=== PATIENT | female | born 1950 | race Caucasian/White ===

== ENCOUNTER → 2017-12-17 13:26 | Outpatient (CLI) | payer BC, SELFPAY ==
--- NOTE | 2017-12-17 13:45 | MRI_ITS ---
STUDY: MRI CERVICAL SPINE WITHOUT CONTRAST REASON FOR EXAM: Female, 67 years old. Neck pain and torticollis. TECHNIQUE: Standardized fat and water weighted pulse sequences were obtained in the sagittal and axial planes. COMPARISON: MRI of the cervical spine dated October 27, 2007. FINDINGS: Normal foramen magnum and brainstem-cervical cord junction. Normal craniovertebral junction. There are degenerative changes of the anterior atlantoaxial articulation. Normal odontoid process. There is straightening of the normal cervical lordosis. Normal vertebral bodies and posterior osseous elements. C2-3: Normal endplates. Normal disc height, signal and morphology. Normal central canal and intervertebral neural foramina. C3-4: There may be a small focal central disc protrusion. There is severe left-sided neural foraminal narrowing with potential nerve impingement. There is uncovertebral facet joint arthropathy, more severe on the left than the right. The right neural foramen is patent. There is no sniffing and central acquired canal stenosis. C4-5: There is mild anterolisthesis at this level with mild uncovering of the disc. There is a disc bulge and osteophyte complex. No foramina are patent. There is mild uncovertebral and facet joint arthropathy and left. C5-6: There is narrowing of the disc. The neural foramina are patent. There is no significant central acquired canal stenosis. C6-7: There is a mild disc bulge and osteophyte complex. There is moderate right-sided neural foraminal narrowing. Left neural foramen is patent. There is no significant central acquired canal stenosis. C7-T1: Normal endplates. Normal disc height, signal and morphology. Normal central canal and intervertebral neural foramina. Normal cervical cord. There is no demonstrated cervical cord syrinx cavity. Normal visualized soft tissue structures. MRI/Spine Cervical (Routine) IMPRESSION: Multilevel degenerative disc disease and degenerative arthropathy of the cervical spine with neural foraminal narrowing, acquired canal stenosis and potential nerve impingement as described. Electronically Signed: Sasha Dozier MD at 16:26 EST , Service support ,
== END ==
PROVIDERS: Family Provider Family Medicine; PCP Family Medicine; Visit Provider Anesthesiology Pain Medicine
DX: M43.6 Torticollis (principal); M50.30 Other cervical disc degeneration, unspecified cervical region; M50.20 Other cervical disc displacement, unspecified cervical region; M54.2 Cervicalgia
CPT/HCPCS: 72141

== ENCOUNTER → 2019-12-21 07:54 | Outpatient (CLI) | payer MEDICARE, SELFPAY ==
--- NOTE | 2019-12-21 08:30 | PET_ITS ---
EXAMINATION: FDG PET-CT INDICATIONS: A 69-year-old female with reported history of pulmonary nodularity. COMPARISON EXAMINATION: CT of the chest report dated 12/09/2019 INDEX LESION SIZE SUV INTERPRETATION Right upper posterior lung-right upper lobe 23.6-mm (frame 237) 1.9 Quantitative criteria for viable neoplasm are not fulfilled, sequential radiologic investigation recommended TECHNIQUE: Following the intravenous administration of 16.86 mCi of F-18 deoxyglucose via the left antecubital fossa, multiplanar image acquisitions of the neck, chest, abdomen and pelvis to level of mid thigh, obtained at one hour post radiopharmaceutical administration contemporaneously interpreted with the current CT of the neck, chest, abdomen and pelvis, to level of mid thigh, dated 12/21/[address] of the chest report dated 12/09/2019 reveals: BLOOD GLUCOSE LEVEL:?? 92 mg/dl?HEIGHT:?67 inches?WEIGHT: 162 lbs. FINDINGS: 1. There is mild increased FDG concentration observed in the right upper posterior lung, right upper lobe adjacent to the major fissure generating a calculated maximal standard uptake value of 1.9. The maximal axial diameter of the corresponding parenchymal density on review of CT of the chest dated 12/21/2019 is 23.6-mm (transverse). 2. Normal physiologic distribution of the radiopharmaceutical is apparent in the hepatic (2.4) and splenic parenchyma, both renal units, bladder and visualized intestinal tract. The visualized portion of the cerebral cortex demonstrate symmetric and preserved glucose metabolism. Diffuse radiopharmaceutical concentration is noted in all four quadrants of the abdomen and pelvis. There is prominent radiopharmaceutical concentration uniformly defined in the left ventricular myocardium commensurate with conversion from fatty acid to glucose metabolism in the fed state. Facilitated tracer concentration is noted in the oral cavity in proximity to dental hardware placement, diffuse, non-nodular in presentation most consistent with a component of physiologic tracer distribution and uptake associated with metallic reconstruction artifact. (Junie et al, AJR 179:1337, 2002). Pertinent CT findings are as follows: CHEST: Bilateral axillary soft tissue densities, subcentimeter in presentation are non-glucose avid. There are no additional parenchymal densities-nodules noted in the right and left hemithorax demonstrating discernible increased FDG concentration. Emphysematous change is noted in the bilateral upper lung zones. ABDOMEN AND PELVIS: There is atherosclerotic calcification defined in the abdominal aorta without evidence of dilatation-aneurysm formation. Bilateral inguinal soft tissue is ametabolic. Calcification is noted in the left lower hemipelvis. SKELETAL: Degenerative changes are noted in the cervical, thoracic and lumbar spine. There is diffuse demineralization identified throughout the axial skeletal structures. PET/PET/CT Tumor Base -Thigh Init IMPRESSION: 1. NEGATIVE EXAMINATION. There is no definitive quantitative scintigraphic evidence of viable neoplasm. 2. Enhanced FDG distribution noted in the right upper posterior lung-right upper lobe does not fulfill quantitative criteria for viable neoplasm. (Jalloh et al, Annals of Internal Medicine, 138:724, 2003). 3. Metabolic and/or anatomic stability may be ensured in the right hemithorax pulmonary parenchymal abnormality with repeat FDG PET study and/or CT of the thorax in three months. (Xiu, Journal of Nuclear Medicine 45:88, P2004 Fer, Seminars in Thoracic and Cardiovascular Surgery 14:292, 2002). 4. Non-glucose avid additional parenchymal densities may be further investigated with repeat CT of the chest in 3-6 months to ensure stability, involution. (Fer, Seminars in Thoracic and Cardiovascular Surgery 14:292, 2002). Electronic Signature Dillan Nair D.O. Electronically Signed: Dlilan Nair DO at 15:49 EST Tel , Service support ,
== END ==
PROVIDERS: PCP Family Medicine
DX: R91.1 Solitary pulmonary nodule (principal)
CPT/HCPCS: 78815; A9552

== ENCOUNTER 2021-05-29 10:59 | Day surgery (SDC) | payer MEDICARE, SELFPAY ==
[2021-05-29] VITALS (7 sets, daily range): BP systolic 91–110; BP diastolic 67–78; PULSE 65–92; RESP 16; TEMP 36.1–36.8; O2SAT 97–100; BMI 25.4
[2021-05-29] MEDS: Lactated Ringers 1,000 ML 100 ML IV (11:39)
--- NOTE | 2021-05-29 12:00 | EGD_PTH ---
PATIENT: ELMER TSE LOC: EN U#:[id number] AGE/SX: 70/F ROOM: RE05/29/[address]: Dr. Eligio Faustin MD : 1950 BED: DIS: 05/29/2021 SPEC #: [id number] RECD: 05/29/21 13:46 STATUS: [facility] HGADA #: [id number] CARMELO: 05/29/21 12:[address]: Eligio Faustin DEPT: SURGICAL PATHOLOGY RECD BY: Shannan Jama ENTERED: 05/30/21 13:03 SP TYPE: EGD BIOPSY ALTAGRACIA DR: Dr. Joel Puente MD Tissues: A - Gastric mucous membrane B - COLON BIOPSY Procedures: Surgery Specimen Level IV HEADER OPERATION: Colonoscopy, EGD ([facility]) PRE-OP DIAGNOSIS: Change in bowel habits, abdomen pain, GERD TISSUE SUBMITTED: A ? Antrum biopsy for histo and H. pylori, B ? Random colonic biopsy MICROSCOPIC DIAGNOSIS A. Gastric antrum, biopsy: Mild chronic gastritis. B. Colon, random biopsy: No pathologic change. AM:zander 05/31/2021 COMMENT A. The results of immunohistochemistry for Helicobacter pylori will be reported separately ([id number]). MICROSCOPIC DESCRIPTION Slides are reviewed. GROSS DESCRIPTION A - Received in fixative is one container labeled with the patient's name and designated antrum biopsy. The specimen consists of one irregular fragment of light joshi soft tissue that measures 0.3 x 0.3 x 0.1 cm. The specimen is totally submitted in one cassette. B - Received in fixative is one container labeled with the patient's name and designated random colonic biopsy. The specimen consists of multiple irregular fragments of light joshi soft tissue that in aggregate measure 2 x 0.5 x 0.1 cm. The specimen is totally submitted in one cassette. / SJ:zander 05/30/21 TC:3 CPT: 42282 x2
--- NOTE | 2021-05-29 12:00 | IMM_PTH ---
PATIENT: ELMER TSE LOC: EN U#:[id number] AGE/SX: 70/F ROOM: RE05/29/[address]: Dr. Eligio Faustin MD : 1950 BED: DIS: 05/29/2021 SPEC #: [id number] RECD: 05/30/21 09:50 STATUS: [facility] REHasmukh #: [id number] CARMELO: 05/29/21 12:[address]: Eligio Faustin DEPT: IMMUNOHISTOCHEMISTRY RECD BY: Stephany Doshi ENTERED: 05/30/21 09:51 SP TYPE: IMMUNO OTHR DR: Dr. Joel Puente MD Tissues: A - Stomach, NOS Procedures: H Pylori (initial) PHYSICIAN & INSTITUTION [place] [address] SPECIMEN INFORMATION: Tissue Source: A ? Antrum biopsy Clinical Info: Change in bowel habits, abdominal pain, GERD Specimen Number: [id number] CPT code: 80063 METHODOLOGY: Deparaffinized sections of prefer/formalin-fixed tissue or PAP/DQ stained slides are incubated with monoclonal/polyclonal antibodies/oligonucleotide probes. Localization is made via biotin free immunoperoxidase method. Appropriate controls are performed and reacted as expected. Results on target cell population are indicated in the following table: RESULTS: ANTIBODY / CLONE RESULT Block A H Pylori (polyclonal) negative These tests were developed and their performance characteristics determined by [facility]. They may not have been cleared or approved by the U.S. Food and Drug Administration. The FDA has determined that such clearance or approval is not necessary. INTERPRETATION: A. Antrum biopsy: Negative for Helicobacter pylori organisms. AM:zander 05/31/2021
--- NOTE | 2021-05-29 12:00 | PCM.HP.BLA ---
History and Physical Date of Admission: 05/29/21 HISTORY AND PHYSICAL ? Hedy Mitchell 1950 ? REFERRING PHYSICIAN: Alice Enrique PA-C ? CHIEF COMPLAINT: New Patient and Change In Bowel Habits ? HPI: The patient is a 70 year old female referred for endoscopy. Hedy notes a recent change in bowel habits. States she used to be more constipated, now stools have a looser consistency and have changed in color. Has noted some associated lower abdominal pressure, is also being evaluated by [facility] for this. She has noted upper abdominal discomfort with acid reflux as well. Denies any particular aggravating or alleviating factors. Notes family history of colon issues-states mother had colitis, daughter and grandfather with Crohn's disease. She notes past history of tobacco use. ? Patient denies any weight changes, blood in stools or black tarry stools. ? Hedy has undergone prior endoscopy. Last EGD [address] Rossi under [facility]. States last colonoscopy 4 years ago at outside facility, records not currently available for review. Patient notes prior history of colon polyps. ? Past medical history significant for COPD, CLL, adenocarcinoma of lung. Her past medical history lists diagnosis of both inflammatory bowel disease and IBS with constipation. Patient denies any personal history of Crohn's or UC to me today. ? PAST MEDICAL HISTORY PAST MEDICAL HISTORY Diagnosis Date ? 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 Adenocarcinoma (HCC) 08/25/2020 ? right upper lobe ? Adenocarcinoma, lung (HCC) 2019 ? CLL (chronic lymphocytic leukemia) (HCC) ? ? CLL (chronic lymphocytic leukemia) (HCC) 2020 ? Colon polyps ? ? COPD (chronic obstructive pulmonary disease) (HCC) ? ? 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 ? Sibilia PFT normal. ? Degenerative disc disease, cervical 03/01/2015 ? Fibromyalgia 07/21/2012 ? Hyperlipidemia ? ? Inflammatory bowel disease ? ? Irritable bowel syndrome with constipation 01/05/2013 ? Lung cancer (HCC) ? ? Osteoporosis 06/07/2014 ? Pain in limb 06/09/2018 ? Palpitations ? ? Tubular adenoma of colon 01/05/2011 ? cecum. 5 yr follow up ? Unspecified hypothyroidism ? ? Viral hepatitis A without mention of hepatic coma ? ? ? PAST SURGICAL HISTORY PAST SURGICAL HISTORY Procedure Laterality Date ? COLONOSCOP W/ OR W/O BRSH SPEC ? 01/27/2014 ? Colonoscopy ? COLONOSCOPY ? 2017 ? pt states had this done by Dr. Garnett and he placed her on 5 year recall ? COLONOSCOPY ? ? ? COLONOSCOPY W/BX ? 01/05/11 ? D&C, DIAG AND/OR THERAPEUTIC ? ? ? Dilation & curettage ? EGD W/O OR W/BRUSH/WASH ? 06/07/2016 ? EGD ? LOBECTOMY, SEGMENT Right 08/25/2020 ? VATS ? [facility] ? 1999 ? myomectomy around the eyelids ? ? ? CURRENT MEDICATIONS Current Outpatient Medications Medication Sig ? estradiol (ESTRACE) 0.01 % (0.1 mg/gram) vaginal cream Use 1 Applicator vaginally two times a week. ? ferrous sulfate (IRON ORAL) Take 28 mg by mouth. Taking one half tablet daily ? atorvastatin (LIPITOR) 20 mg tablet Take 1 tablet by mouth once daily. ? SYNTHROID 112 mcg tablet Take 1 tablet by mouth once daily. Take on empty stomach. For thyroid ? lidocaine (SALONPAS) 4 % patch Apply 1 Patch as directed once daily. ? magnesium hydroxide (MOM) 400 mg/5 mL suspension Take 30 mL by mouth twice daily. ? Calcium-Cholecalciferol, D3, (CALCIUM 600 WITH VITAMIN D3) 600 mg(1,500mg) -400 unit cap Take 1 capsule by mouth twice daily. ? Cholecalciferol, Vitamin D3, 2,000 unit cap Take 1 tablet by mouth once daily. ? clonazePAM (KLONOPIN) 0.5 mg tablet Take 1 tablet by mouth twice daily. ? Biotin 800 mcg ORAL Tab Take by mouth once daily. ? ascorbic acid (VITAMIN C) 500 mg ORAL tablet Take 1 tablet by mouth once daily. ? TRAZODONE 150MG TABLET Take one(1) tablet daily at bedtime. ? peg 3350-Electrolytes (GOLYTELY) 236-22.74-6.74 -5.86 gram suspension Take 4,000 mL by mouth one time only for 1 dose. ? Current Facility-Administered Medications Medication Dose Route Frequency ? perflutren lipid microspheres 1.3 mL in NaCl (PF) 0.9% 10 mL injection (DEFINITY) INTRAVENOUS DIRECTED PRN ? sodium chloride 0.9 % (flush) 10 mL (BD POSIFLUSH) 10 mL INTRAVENOUS DIRECTED PRN ? ? ALLERGIES: Cephalexin, Ciprofloxacin, Reglan [Metoclopramide Hcl], and Sulfa (Sulfonamide Antibiotics) ? PERSONAL HISTORY: SOCIAL HISTORY Social History ? Tobacco Use ? Smoking status: Former Smoker ? ? Packs/day: 0.40 ? ? Years: 45.00 ? ? Pack years: 18.00 ? ? Types: Cigarettes ? ? Quit date: 06/30/2006 ? ? Years since quittin.8 ? Smokeless tobacco: Never Used Vaping Use ? Vaping Use: Never used Substance Use Topics ? Alcohol use: Yes ? ? Alcohol/week: 17.5 standard drinks ? ? Types: 7 Glasses of Wine (5oz) per week ? ? Comment: daily red wine, one glass ? Drug use: No ? FAMILY HISTORY: FAMILY HISTORY FAMILY HISTORY Problem Relation Age of Onset ? Cancer Mother ? ? Lung ? Cataract Mother ? ? Coronary Artery Disease Maternal Grandmother ? ? angina ? Cataract Father ? ? other (Crohn's disease) Father ? ? Lung Cancer Brother ? ? Heart Son ? ? bradycardia,arrhythmia ? other (Crohn's disease) Daughter ? ? ? REVIEW OF SYMPTOMS: The review of systems data was entered by the nurse and reviewed by me ? Nursing Notes: Karen Marin RN 05/02/2021 1:36 PM Signed REVIEW OF SYSTEMS: General: The patient denies fatigue, denies weight loss, denies weight gain, denies feeling hot, and denies feelings of cold. Eyes: The patient denies glaucoma, denies eye injury/surgery, wears glasses or contacts. Ear/Nose/Throat: The patient denies allergies, denies hayfever, denies ear infections, and denies bloody noses. Cardiovascular: The patient denies chest pain, denies heart disease, denies high blood pressure,denies cardiac stent, denies prior heart attack, NOTES PALPITATIONS/irregular heart beat, NOTES high cholesterol, denies poor circulation, denies heart failure, other cardiac issues, denies claudication, denies cold feet, denies peripheral arterial stent. Respiratory: The patient denies tuberculosis, denies pneumonia, denies frequent cough, denies pulmonary embolism, denies shortness of breath, and denies coughing up blood. Gastrointestinal: The patient denies difficulty swallowing, denies acid reflux, denies ulcers, denies vomiting, denies jaundice/hepatitis, denies gallbladder problems, denies black or tarry stools, denies hemorrhoids, denies bleeding from rectum, denies diverticulitis, NOTED constipation, NOTES diarrhea, denies loss of stool control, and denies hernias. Kidney/Bladder: The patient denies kidney stones, NOTES urine infections, and denies bloody urine. Skin: The patient denies a history of skin cancer, denies bleeding/changing moles, and denies a history of skin rash. Neurologic: The patient denies a history of epilepsy/convulsions, denies headaches, denies head/spinal injuries, and denies stroke/TIA. Psychiatric: The patient denies psychiatric medications, denies depression, and denies voices, denies substance abuse. Endocrine: The patient denies thyroid disorders, denies diabetes, and denies hormonal problems. Hematologic: The patient denies a history of bruising, denies bleeding, and denies anemia, denies blood clots. Infections: The patient denies a history of measles and mumps, denies rheumatic fever, and denies sexually transmitted diseases. Musculoskeletal: The patient denies back pain/injury, denies back problems, denies sciatica, denies knee/foot trouble, denies arthritis, or denies gout. ? Last Colonoscopy: 2017 ? Karen Marin RN I have confirmed and edited as necessary, the PFSH and ROS obtained by others. Shelia Esteban PA-C ? PHYSICAL EXAMINATION: ? General: The patient is 70 year old female, well nourished, well hydrated in no acute distress. The patient is oriented to time, place, and person. ? VITALS: Pulse 101, temperature 36.1 ?C (96.9 ?F), temperature source Tympanic, resp. rate 17, height 172.7 cm (5' 8), weight 76.3 kg (168 lb 3.2 oz), SpO2 99 %. Body mass index is 25.57 kg/m?. ? HEENT: Normal cephalic, ataumatic, pupils are equally round, sclera are anicteric, mucous membranes are moist, oropharynx is clear. Neck has no masses, asymmetry or lymphadenopathy. ? Respiratory: Clear to auscultation and percussion. Normal respiratory excursion and pattern. ? Cardiac: Examination is regular rate and rhythm. Normal S1/S2 ? Abdominal exam: Soft, nontender, with no palpable masses. No hepatosplenomegaly. No palpable hernias. ? Extremities: no clubbing, cyanosis or edema. No adenopathy. ? LABORATORY VALUES: As Noted ? RADIOLOGIC STUDIES: As Noted ? ? Assessment IMPRESSION: change in bowel habits, upper abdominal discomfort, lower abdominal pressure and pain, bloating, GERD ? PLAN: I have reviewed my findings with the surgeon. Will plan for upper and lower endoscopy. We discussed the risks and benefits of the planned endoscopy. I have informed the patient that complications can occur including failure to complete the endoscopy and perforation. The patient had the opportunity to ask questions concerning the planned endoscopy. My staff has also explained the procedure to the patient in understandable terms and has given the patient printed material concerning the procedure. The patient freely consents to surgery. ? The patient was offered a surgery/procedure at a [facility]. I have counseled the patient regarding the risk of exposure to and/or potential harm posed by the COVID-19 virus with having a surgery/procedure at this time versus the risk of? delaying the surgery/procedure. It is not possible to know either the risk of delaying the surgery or procedure or chance of getting an infection with perfect accuracy, but a joint decision was made between the patient and myself?to proceed at this time with endoscopy. ? ? I plan to use Golytely bowel preparation ? The patient takes prescription medications which I feel decrease the chance of successful sedation, therefore we will plan for procedure to be done under [facility]. ? ? ? Diagnoses: (R19.4) Change in bowel habits (primary encounter diagnosis) (R10.11, R10.12) Bilateral upper abdominal discomfort (R14.0) Abdominal bloating (K21.9) Gastroesophageal reflux disease, unspecified whether esophagitis present (R10.30) Lower abdominal pain ? I spent a total of 35 minutes on the date of the service which included preparing to see the patient, [id number] patient care, completing clinical documentation, obtaining and/or reviewing separately obtained history, performing a medically appropriate examination, counseling and educating the patient/family/caregiver, ordering medications, tests, or procedures and care coordination (not separately reported). ? Shelia Esteban PA-C I have re-examined the patient. There are no clinical changes since date of exam.
--- NOTE | 2021-05-29 12:26 | OP.CCLET_ITS ---
05/29/2021 Joel Puente MD Re : Upper GI endoscopy procedure for Hedy Mitchell Dear Dr. Puente This procedure was performed on Saturday, May 29, 2021. My impressions and recommendations are as follows: Impressions : - Z-line regular, 41 cm from the incisors. - Gastritis. Biopsied. - Normal examined duodenum. Recommendations : - Await pathology results. - Repeat upper endoscopy PRN for surveillance. - Return to physician front end assistant in 1 week. - Continue present medications. My findings are described in the full procedure note, which is enclosed. If I can be of further assistance, please feel free to contact me at Doctor phone number(s): , Fax: [phone], Work: . Sincerely, MD Eligio Ventura MD 05/29/2021 12:25:34 PM This report has been signed electronically.
--- NOTE | 2021-05-29 12:26 | OP.EGD_ITS ---
Patient Name: Hedy Mitchell Procedure Date: 05/29/2021 11:49 AM Date of : 1950 Age: 70 Procedure: Upper GI endoscopy Indications: Gastro-esophageal reflux disease Providers: Eligio Faustin MD Referring MD: Joel Puente MD Medicines: See the Anesthesia note for documentation of the administered medications Patient Profile: This is a 70 year old female. Refer to note in patient chart for documentation of history and physical. Complications: No immediate complications. Procedure: Pre-Anesthesia Assessment: - Prior to the procedure, a History and Physical was performed, and patient medications and allergies were reviewed. The patient's tolerance of previous anesthesia was also reviewed. The risks and benefits of the procedure and the sedation options and risks were discussed with the patient. All questions were answered, and informed consent was obtained. Prior Anticoagulants: The patient has taken no previous anticoagulant or antiplatelet agents. ASA Grade Assessment: II - A patient with mild systemic disease. After reviewing the risks and benefits, the patient was deemed in satisfactory condition to undergo the procedure. After obtaining informed consent, the endoscope was passed under direct vision. Throughout the procedure, the patient's blood pressure, pulse, and oxygen saturations were monitored continuously. The gastroscope was introduced through the mouth, and advanced to the second part of duodenum. The upper GI endoscopy was accomplished without difficulty. The patient tolerated the procedure well. Scope In: 12:06:11 PM Scope Out: 12:08:35 PM Total Procedure Duration Time 0 hours 2 minutes 24 seconds Findings: The Z-line was regular and was found 41 cm from the incisors. Localized minimal inflammation characterized by erythema was found in the prepyloric region of the stomach. Biopsies were taken with a cold forceps for Helicobacter pylori testing. The examined duodenum was normal. Impression: - Z-line regular, 41 cm from the incisors. - Gastritis. Biopsied. - Normal examined duodenum. Recommendation: - Await pathology results. - Repeat upper endoscopy PRN for surveillance. - Return to physician public services assistant in 1 week. - Continue present medications. Procedure Code(s): --- Professional --- 75389, Esophagogastroduodenoscopy, flexible, transoral; with biopsy, single or multiple Diagnosis Code(s): --- Professional --- K29.70, Gastritis, unspecified, without bleeding K21.9, Gastro-esophageal reflux disease without esophagitis CPT copyright 2017 [employer]. All rights reserved. The codes documented in this report are preliminary and upon hedge trimmer review may be revised to meet current compliance requirements. MD Eligio Ventura MD 05/29/2021 12:25:34 PM This report has been signed electronically. Number of Addenda: 0 Note Initiated On: 05/29/2021 11:49 AM
--- NOTE | 2021-05-29 12:29 | OP.COLON_ITS ---
Patient Name: Hedy Mitchell Procedure Date: 05/29/2021 12:09 PM Date of : 1950 Age: 70 Procedure: Colonoscopy Indications: Lower abdominal pain, Change in bowel habits Providers: Eligio Faustin MD Referring MD: Joel Puente MD Medicines: See the Anesthesia note for documentation of the administered medications Patient Profile: This is a 70 year old female. Refer to note in patient chart for documentation of history and physical. Last Colonoscopy: 2016. Complications: No immediate complications. Procedure: Pre-Anesthesia Assessment: - Prior to the procedure, a History and Physical was performed, and patient medications and allergies were reviewed. The patient's tolerance of previous anesthesia was also reviewed. The risks and benefits of the procedure and the sedation options and risks were discussed with the patient. All questions were answered, and informed consent was obtained. Prior Anticoagulants: The patient has taken no previous anticoagulant or antiplatelet agents. ASA Grade Assessment: II - A patient with mild systemic disease. After reviewing the risks and benefits, the patient was deemed in satisfactory condition to undergo the procedure. After I obtained informed consent, the scope was passed under direct vision. Throughout the procedure, the patient's blood pressure, pulse, and oxygen saturations were monitored continuously. The adult colonoscope was introduced through the anus and advanced to the cecum, identified by appendiceal orifice and ileocecal valve. The colonoscopy was performed without difficulty. The patient tolerated the procedure well. The quality of the bowel preparation was good. Scope In: 12:11:18 PM Scope Withdrawal Time 0 hours 7 minutes 26 seconds Scope Out: 12:22:47 PM Total Procedure Duration Time 0 hours 11 minutes 29 seconds Findings: The colon (entire examined portion) appeared normal. Biopsies for histology were taken with a cold forceps from the entire colon for evaluation of microscopic colitis. The exam was otherwise without abnormality on direct and retroflexion views. Impression: - The entire examined colon is normal. Biopsied. - The examination was otherwise normal on direct and retroflexion views. Recommendation: - Discharge patient to home. - Resume previous diet. - Continue present medications. - Await pathology results. - Repeat colonoscopy in 10 years for screening purposes. - Return to physician assistant professor of drama in 1 week. Procedure Code(s): --- Professional --- 01066, Colonoscopy, flexible; with biopsy, single or multiple Diagnosis Code(s): --- Professional --- R10.30, Lower abdominal pain, unspecified R19.4, Change in bowel habit CPT copyright 2017 [employer]. All rights reserved. The codes documented in this report are preliminary and upon independent living advisor review may be revised to meet current compliance requirements. MD Eligio Ventura MD 05/29/2021 12:28:51 PM This report has been signed electronically. Number of Addenda: 0 Note Initiated On: 05/29/2021 12:09 PM
--- NOTE | 2021-05-29 12:30 | OP.CCLET_ITS ---
05/29/2021 Joel Puente MD Re : Colonoscopy procedure for Hedy Mitchell Dear Dr. Puente This procedure was performed on Saturday, May 29, 2021. My impressions and recommendations are as follows: Impressions : - The entire examined colon is normal. Biopsied. - The examination was otherwise normal on direct and retroflexion views. Recommendations : - Discharge patient to home. - Resume previous diet. - Continue present medications. - Await pathology results. - Repeat colonoscopy in 10 years for screening purposes. - Return to physician under water assistant in 1 week. My findings are described in the full procedure note, which is enclosed. If I can be of further assistance, please feel free to contact me at Doctor phone number(s): , Fax: [phone], Work: . Sincerely, MD Eligio Ventura MD 05/29/2021 12:28:51 PM This report has been signed electronically.
--- NOTE | 2021-05-29 12:31 | EX.PCM.DISCH ---
Discharge Instructions Procedure General Surgery Diet Discharge Diet: Light diet - advance as tolerated (If you have questions about your diet instructions, please talk to your doctor.) Activity Discharge Activity: May Not Drive (for 1 week or while taking narcotic pain medicine.) May shower in (days): 1 Lifting Restrictions: 10 pounds Dressing / Incision Call your doctor if your incision/area has: Continuous Slow Oozing, Sudden Increased Bleeding, Increased Pain/ Swelling, Increased Redness and Foul Smelling Discharge Call your doctor if you observe: Fever of 101 or Higher Suture Line Care: Avoid Pulling/Pushing and Avoid Pinching/Bending Additional Dressing/Incision Instructions:: Change or remove dressing in 4 days. Leave steri-strips in place for 1 week. Follow Up Care Please Follow Up With: Shelia Esteban PA-C When: Call office to schedule an appointment to be seen in about 10 days. Test Results: Test results from this visit will be discussed in further detail at your follow-up appointment, if applicable. Discharge Plan Admission Attending Provider: Eligio Faustin Primary Care Provider: Joel Puente Discharge Orders/Prescriptions Prescriptions: No Action atorvastatin [Lipitor] 20 mg Tablet 20 mg PO DAILY RF: 0 oxybutynin chloride 10 mg Tablet Extended Release 24hr 10 mg PO QODAY RF: 0 clonazepam 0.5 mg tablet 0.5 mg PO BID RF: 0 Vitamin C 1,000 mg Tablet Extended Release 1,000 mg PO DAILY RF: 0 trazodone 150 mg Tablet 150 mg PO QHS PRN (Reason: Sleep) RF: 0 calcium citrate 500 mg Tablet, Effervescent 500 mg PO BID RF: 0 vitamin B complex [Vitamin B Complex-100] Tablet 1 tab PO QODAY RF: 0 magnesium 250 mg Tablet 250 mg PO BID RF: 0 coenzyme Q10 [CoQ-10] 30 mg Capsule 30 mg PO DAILY RF: 0 levothyroxine [Synthroid] 112 mcg Tablet 112 mcg PO QHS RF: 0 cholecalciferol (vitamin D3) [Vitamin D3] 25 mcg (1,000 unit) Tablet 25 mcg PO DAILY RF: 0 alpha lipoic acid 600 mg Capsule 600 mg PO DAILY RF: 0 biotin 5,000 mcg Tablet,Disintegrating 5,000 mcg PO DAILY RF: 0
== END 2021-05-29 13:29 ==
LOC: EN 11:02 → AC 11:03
PROVIDERS: PCP Family Medicine; Referring Provider Family Medicine; Visit Provider Surgery
PROC: 0DJD8ZZ Inspection of Lower Intestinal Tract, Via Natural or Artificial Opening Endoscopic (ICD-10-PCS; CPT 45378; principal; 2021-05-29 11:55)
DX: K29.50 Unspecified chronic gastritis without bleeding (principal); K21.9 Gastro-esophageal reflux disease without esophagitis; K58.9 Irritable bowel syndrome, unspecified; E03.9 Hypothyroidism, unspecified; E78.5 Hyperlipidemia, unspecified; J44.9 Chronic obstructive pulmonary disease, unspecified; M79.7 Fibromyalgia; M81.0 Age-related osteoporosis without current pathological fracture; E78.00 Pure hypercholesterolemia, unspecified; Z85.6 Personal history of leukemia; Z86.010 Personal history of colon polyps; Z85.118 Personal history of other malignant neoplasm of bronchus and lung; Z79.899 Other long term (current) drug therapy; Z87.891 Personal history of nicotine dependence
CPT/HCPCS: 43239; 45380; 88305; 88342; J7120; J2405

== ENCOUNTER 2022-04-20 10:30 | Outpatient (RCR) | payer MEDICARE, SELFPAY ==
--- NOTE | 2022-04-02 12:47 | HP.PTEVAL_ITS ---
Patient's Visit Information ELMER TSE is a 71 year old F referred to Physical Therapy by Dr. Micahel Donohue, DO with a diagnosis of CEVICAL STENOSIS CERVICAL HNP C3-4,DDD .CERVICAL SPONDYLOSIS CHRONIC PAIN. Date of Evaluation: 04/02/22 Physical Therapist: Gustabo Newton, PT, Cert MDT, OCS - Visit Plan Frequency: 2x /Week Duration: 4 Weeks Plan: PT INTERVENTIONS CERVICAL ISOMTRICS,POSTURAL EX'S,CERVICAL ROM AND MANUAL THERPAY - Subjective This 71 y/o female presents to physical therapy with cervical pain . Patient has cervical pain for 25 years . Patient seen pain management wanted do MRI ,but needed to try MRI . Patient has had cervical epidural 15 times . Patient has had cervical Botox injections. Patient has [facility] due to cervical dystonia. Patient has h/o HNP cervical and DDD/spon dylosis. Patient has paresthesia/tingling in hands had neuropathy in legs. Denies denies dizziness /tinnitus/nausea. Location cervical /UT. Aggravating factors any movement in neck walking ,lifting . Patient c/o weakness in arms. Patient pain affects sleeping. Patient ADL's and housework tasks are affected. Patient has had diagnostics in past and prior PT. Patient pain affects QOL and is on disability due to dystonia. VOCATION: disability. SOCAIL; - Pain Bilateral Neck Pain Intensity (Out of 10): 5 Pain Intensity Range: 10 - Objective POSTURE: forward head rounded shoulders mild thoracic kyphosis. PALPTION: soft tissue pliable no tightness , poor muscle. NEURO: c/o paresthesia/tingling hands ,reflexes C5-6-7 2/3. CERVICAL ROM: flexion min loss, extension mod severe ,rotation right mod loss, left mod/severe loss, lateral flexion right mod loss ,severe left loss. MMT( peak force) : deltoid L 12.3,right 12,5.biceps/triceps left 17.3,right 17,4. 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 DIRECTOR STRENGTH : dynometer LEFT 22#,RIGHT 20# - Special Tests C/S Radiculapathy - Left Upper limb tension test: Negative C/S Radiculapathy - Right Upper limb tension test: Negative C/S Radiculapathy - Left Spurlings: Positive C/S Radiculapathy - Right Spurlings: Positive C/S Radiculapathy - Left Cervical distraction: Negative C/S Radiculapathy - Right Cervical distraction: Negative Sharp Alexandru: Negative Vertebral Artery Test: Negative Alar Ligament Test: Negative - Balance/Special Test Scores Oswestry Neck Score: 21 - Goals Goal 1:: I with HEP Goal Time Frame: 4-6 Weeks Goal 2:: Patient to demonstrate 50% improvement with function and less pain. Goal Time Frame: 4-6 Weeks Goal 3:: Patient to improve cervical ROM for function to turn neck to crive car Goal Time Frame: 4-6 Weeks Goal 4:: Patient increase force peak by 5 of bilateral UE point to improve function. Goal Time Frame: 4-6 Weeks Goal 5:: Patient to improve neck oswestry score by 5 points to improve QOL/function Goal Time Frame: 4-6 Weeks - Rehabilitation Potential Physical Therapy Diagnosis: This patient has multiple complexity issues with poor ROM ,postural deficits ,weakness and pain with positioning and movement thus will benefit from skilled PT Rehabilitation Potential: Good - Anticipated Interventions Patient/Client Instruction: Educate patient on: Condition, Plan of Care For the Purpose of:: To decrease pain, To increase ROM, To improve muscle performance and motor function, To improve ability to perform ADL's, To increase tolerance to activity/condition/position, To improve ability of physical actions for home/community/work/leisure, To improve health of tissue, To decrease soft tissue restriction, To increase flexibility/ROM, To reduce risk of recurrence, To prevent re-injury, To improve tolerance to ADL's Therapeutic Exercise to Include: Strength training, Body mechanics, Postural training, Flexibilty training, Active ROM For the Purpose of:: To decrease pain, To increase ROM, To improve muscle p erformance and motor function, To improve ability to perform ADL's, To increase tolerance to activity/condition/position, To improve ability of physical actions for home/community/work/leisure, To improve health of tissue, To increase flexibility/ROM, To reduce risk of recurrence Manual Therapy Techniques to Include: Soft tissue mobilization For the Purpose of:: To decrease pain, To increase ROM, To improve nutrient delivery to tissue, To increase oxygenation perfusion, To improve health of tissue, To decrease soft tissue restriction Thank you for the opportunity to evaluate your patient. For Medicare and Medicare HMO plans, please review the plan of care and approve it. It will need to be FAXED BACK to us at [phone] for Medicare purposes. For Medicare only, by signing this I certify the plan of care. Please let me know if there are questions or concerns regarding this plan of care. Physician Signat ure: Date:
--- NOTE | 2022-04-20 11:11 | HP.PTDCSUM ---
It has been my pleasure to treat ELMER TSE referred by Dr. Michael Donohue DO, with the diagnosis of CEVICAL STENOSIS CERVICAL HNP C3-4,DDD .CERVICAL SPONDYLOSIS CHRONIC PAIN for a total of 4 visit(s). Discharge Date: 04/20/22 Please see the following information for a summary of their discharge status. Subjective: Doing okay but trying to have MRI. Willing to do ex's on ow Bilateral Neck Pain Intensity (Out of 10): 5 % Improvement: 10 Objective/Function: POSTURE: protruded head rounded shoulders. CERVICAL ROM: flexion/rotation/lateral flexion WFL ,extension min loss. MMT: grossly 4-/5. Patient ex's can aggravates symptoms but needs graded Goal 1:: I with HEP Goal Progress: Progressing Goal 2:: Patient to demonstrate 50% improvement with function and less pain. Goal Progress: Progressing Goal 3:: Patient to improve cervical ROM for function to turn neck to crive car Goal Progress: Progressing Goal 4:: Patient increase force peak by 5 of bilateral UE point to improve function. Goal Progress: Not Progressing Goal 5:: Patient to improve neck oswestry score by 5 points to improve QOL/function Plan: D/C AN MRI PER MD Discharge Comments: HEP AND MRI If there are questions or concerns regarding this patient's physical therapy, please feel free to call me at [phone]. Thank you for the referral of this patient. Sincerely, Gustabo Newton, PT, Cert MDT, OCS Balance/Gait/Functional tests - Balance/Special Test Scores Oswestry Neck Score: 15
--- NOTE | 2022-04-20 11:16 | HP.PTDCSUM ---
It has been my pleasure to treat ELMER TSE referred by Dr. Michael Donohue DO, with the diagnosis of CEVICAL STENOSIS CERVICAL HNP C3-4,DDD .CERVICAL SPONDYLOSIS CHRONIC PAIN for a total of 4 visit(s). Discharge Date: 04/20/22 Please see the following information for a summary of their discharge status. Subjective: Doing okay but trying to have MRI. Willing to do ex's on ow Bilateral Neck Pain Intensity (Out of 10): 5 Objective/Function: POSTURE: protruded head rounded shoulders. CERVICAL ROM: flexion/rotation/lateral flexion WFL ,extension min loss. MMT: grossly 4-/5. Patient ex's can aggravates symptoms but needs graded Goal 1:: I with HEP Goal Progress: Progressing Goal 2:: Patient to demonstrate 50% improvement with function and less pain. Goal Progress: Progressing Goal 3:: Patient to improve cervical ROM for function to turn neck to crive car Goal Progress: Progressing Goal 4:: Patient increase force peak by 5 of bilateral UE point to improve function. Goal Progress: Not Progressing Goal 5:: Patient to improve neck oswestry score by 5 points to improve QOL/function Plan: D/C AN MRI PER MD Discharge Comments: HEP AND MRI If there are questions or concerns regarding this patient's physical therapy, please feel free to call me at [phone]. Thank you for the referral of this patient. Sincerely, Gustabo Newton, PT, Cert MDT, OCS Balance/Gait/Functional tests - Balance/Special Test Scores Oswestry Neck Score: 15
== END 2022-04-20 12:26 | disposition home or self-care (01) ==
LOC: PT 10:30
PROVIDERS: PCP Family Medicine; Referring Provider Anesthesiology Pain Medicine; Visit Provider Anesthesiology Pain Medicine
DX: M79.10 Myalgia, unspecified site; G89.4 Chronic pain syndrome; M46.92 Unspecified inflammatory spondylopathy, cervical region; M48.02 Spinal stenosis, cervical region; M50.11 Cervical disc disorder with radiculopathy, high cervical region; M50.10 Cervical disc disorder with radiculopathy, unspecified cervical region; M47.22 Other spondylosis with radiculopathy, cervical region
CPT/HCPCS: 97110; 97162; 97530

== ENCOUNTER → 2022-05-25 | Outpatient (CLI) | payer MEDICARE, SELFPAY ==
[2022-05-25 15:57] LABS: Absolute Lymphocyte Count 28.38 X10^3/uL (0.83-4.51); Absolute Neutrophil Count 4.1 X10^3/uL (2.0-7.7); Basophil# 0.11 X10^3/uL; Basophil% 0.3 % (0-1); Eosinophil# 0.11 X10^3/uL; Eosinophils% 0.3 % (0-5); Hematocrit 41.7 % (37-47); Hemoglobin 13.7 g/dL (12.0-15.0); Lymphocyte # 28.38 X10^3/ul (0.83-4.51); Mean Corp Hgb Conc 32.9 g/dL (32-36); Mean Corpuscular Hgb 31.3 pg (27.0-32.0); Mean Corpuscular Volume 95.2 fL (81-99); Monocyte# 0.63 X10^3/uL; Monocyte% 1.9 % (0-10); NRBC Flagged by Analyzer 0 % (0-5); Neutrophil % 12.4 % (47-70); POSITIVE COUNT YES; POSITIVE DIFFERENTIAL YES; Platelet Count 242 K/mm3 (150-450); RBC Distribution Width CV 13.4 % (11.6-14.6); RBC Distribution Width SD 46.9 fl (35.1-43.9); Red Blood Count 4.38 M/mm3 (4.2-5.4)
[2022-05-25 16:11] LABS: Differential Indicated SCAN CRITERIA MET; Vitamin B12 652 pg/mL (211-911)
[2022-05-25 16:24] LABS: ALB/GLOB Ratio 1.1 RATIO (0.9-2.4); AST(SGOT) 19 U/L (15-37); Alanine Aminotransfer ALT/SGPT 32 U/L (13-56); Albumin, Serum 3.8 g/dL (3.2-5.0); Alkaline Phosphatase 67 U/L (45-117); Anion Gap 4 (5-15); BUN 18 mg/dL (7-18); BUN/Creat Ratio 18.9 RATIO (10-20); CRP < 2.90 mg/L (0.0-3.0); Calcium,Total 8.7 mg/dL (8.5-10.1); Chloride 105 mmol/L (98-107); Creatinine, Serum 0.95 mg/dL (0.55-1.02); EST Glomerular Filtration Rate 61 mL/min (>60); Est Glom Filt Rate - Afr Amer 74 mL/min (>60); Globulin 3.4 g/dL (2.2-4.2); Glucose 98 mg/dL (74-106); LDH 194 U/L (84-246); Potassium 3.8 mmol/L (3.5-5.1); Protein, Total 7.2 g/dL (6.4-8.2); Sodium Level 139 mmol/L (136-145)
[2022-05-25 16:27] LABS: White Blood Count 33.4 K/mm3 (4.4-11.0)
[2022-05-25 16:28] LABS: Anisocytosis 1+; Differential Comment SEE COMMENTS; Macrocytosis 1+; Platelet Estimate ADEQUATE (ADEQ); Red Cell Morphology N CHROM NORMAL (NORM C&C)
[2022-05-25 16:29] LABS: Atypical Lymphocyte 2+ %; Reactive Lymphocyte 2+
[2022-05-25 16:30] LABS: Erythrocyte Sedimentation Rate 12 mm/hr (0-30)
[2022-05-28 12:21] LABS: Pathologist Review Reviewed
[2022-05-28 15:08] LABS: Anti-Centromere B Ab <0.2 AI (0.0-0.9); Anti-Chromatin <0.2 AI (0.0-0.9); Anti-Jo <0.2 AI (0.0-0.9); Anti-Scleroderma-70 AB <0.2 AI (0.0-0.9); Endomysial Antibody IgA Negative (Negative); RNP Ab <0.2 AI (0.0-0.9); SJOGREN'S Anti-SS-A test < 0.2 AI (0.0-0.9); SJOGREN'S Anti-SS-B test < 0.2 AI (0.0-0.9); Smith Ab <0.2 AI (0.0-0.9)
[2022-05-28 16:55] LABS: Anti-dsDNA Ab 1 IU/mL (0-9); Immunoglobulin A 85 mg/dL (64-422); t-Transglutaminase IgA <2 U/mL (0-3)
[2022-05-31 13:07] LABS: Albumin 3.7 g/dL (2.9-4.4); Alpha-1-Globulins 0.3 g/dL (0.0-0.4); Alpha-2-Globulins 0.8 g/dL (0.4-1.0); Cytoplasmic Ab (C-ANCA) <1:20 titer (Neg:<1:20); Gamma Globulin 0.8 g/dL (0.4-1.8); Immunoglobulin A 87 mg/dL (64-422); Immunoglobulin G 738 mg/dL (586-1602); Immunoglobulin M 41 mg/dL (26-217); PROEL- TOTAL PROTEIN 6.5 g/dL (6.0-8.5)
[2022-05-31 16:14] LABS: Immunoglobulin E 13 IU/mL (6-495); Perinuclear Ab (P-ANCA) <1:20 titer (Neg:<1:20)
== END | disposition home or self-care (01) ==
LOC: LAB 15:25
PROVIDERS: PCP Family Medicine; Referring Provider Internal Medicine Gastroenterology; Visit Provider Internal Medicine Gastroenterology
DX: R11.2 Nausea with vomiting, unspecified (principal); R19.4 Change in bowel habit; K58.9 Irritable bowel syndrome, unspecified
CPT/HCPCS: 36415; 80053; 82607; 82784; 82785; 83516; 83615; 84165; 85025; 85652; 86140; 86225; 86235; 86255; 86256; 86334

== ENCOUNTER → 2022-05-26 | Outpatient (CLI) | payer MEDICARE, SELFPAY ==
[2022-05-29 17:05] LABS: Calprotectin, Stool <16 ug/g (0-120); H. PYLORI STOOL AG Negative (Negative)
== END | disposition home or self-care (01) ==
PROVIDERS: PCP Family Medicine; Referring Provider Internal Medicine Gastroenterology; Visit Provider Internal Medicine Gastroenterology
DX: K58.9 Irritable bowel syndrome, unspecified (principal); R11.2 Nausea with vomiting, unspecified; R19.4 Change in bowel habit
CPT/HCPCS: 83630; 83993

== ENCOUNTER 2022-06-20 09:57 | Day surgery (SDC) | payer MEDICARE, SELFPAY ==
[2022-06-20 10:16] VITALS: BP 114/61; PULSE 74; RESP 16; TEMP 36.1; O2SAT 96; BMI 25.9
[2022-06-20] MEDS: Lactated Ringers 1,000 ML 15 ML IV (10:23)
--- NOTE | 2022-06-20 10:24 | PCM.HP.BLA ---
History and Physical Date of Admission: 06/20/22 HEDY TSE, is a 71 F who presents to the office today for Initial consult. Hedy established with this clinic 8. Sucralfate BID started by PCP. Following dinner, she will have a sensation of heartburn followed by bloating and abdominal pain and will then vomit and feel better. This happens approximately once every three-four weeks. Prior to this start she was having issue with constantly upset stomach. In the past she has had issue with no bowel movement with need to evacuate and requires manual disimpaction. She is taking fiber and two magnesium a day for constipation. Currently having postprandial urgent soft stools with narrow caliber or normal caliber or a light brown/reddish color without oil/floating/mucous/blood. Reports she has IBS. PMH CLL does not require treatment at this time; Dystonia; hypothyroid. FH father and daughter, Crohn?s disease. Mother colitis. EGD and colonoscopy 05.29.[address] Faustin [facility] for lower abdominal pain and change in bowel habits. EGD found gastritis, biopsy proven. H.Pylori negative. Colonoscopy without abnormalities found. Biopsy without pathologic changes. ROS Const Constitutional: No anorexia, fatigue, fever(s), weight change or sleep problems Eyes Eyes: No change in vision ENT ENT: No abnormal hearing, difficulty swallowing, mouth lesions, tongue swelling or throat swelling Resp Respiratory: No cough or shortness of breath Cardio Cardiology: No chest pain at rest, chest pain with exertion, shortness of breath or dyspnea on exertion Gastro GI: No difficulty swallowing Genitourinary-Female: No difficulty urinating or burning urination Musc Musculoskeletal: No joint pain, joint swelling, muscle weakness or decreased muscle mass Skin Skin: No hair loss in leg, yellowing of the eye, itchy eyes, rash, skin ulcer or skin swelling Neuro Neurology: No abnormal hearing, abnormal movements, confusion, unsteady gait/balance or memory loss Psych Psychiatric: No anxiety, No confusion and No memory loss Endo Endocrine: No fatigue or weight change Aller/Imm Allergy/Immunologic: No itchy eyes, throat swelling or tongue swelling Antonio/Lymp Hematologic/Lymphatic: No easy bleeding, easy bruising or enlarged lymph nodes Exam Const General: cooperative and comfortable Nutritional Appearance: average body habitus and well nourished HENMT Head: normal to inspection Ears: hearing grossly normal bilaterally Nose: external nose normal Face and sinus: normal facial exam Mouth: oral mucosae normal Throat: posterior oropharynx normal Eyes General: appearance normal, both eyes and all related structures Neck Neck: normal visual inspection Chest Chest palpation & inspection: normal inspection of the chest and normal palpation of entire chest wall Resp Effort & Inspection: normal respiratory effort Auscultation: Bilateral: Clear to Auscultation Cardio Palpation: normal PMI Rate: regular rate Rhythm: regular rhythm GI Inspection: normal to inspection Auscultation: normal bowel sounds Percussion: normal to percussion Palpation: no hepatosplenomegaly Skin General: no rashes or lesions noted Neuro General: patient alert Extrem General: normal to inspection Psych Affect: normal affect Quality Reporting Tobacco Screening ([facility] 138) Smoking Status: Former smoker Assessment and Plan Assessment and Plan (1) Change in bowel habits: ?Status:?Chronic ?Plan: Change in bowel habits possibly secondary to a previous diagnosis of chronic gastritis from unknown cause.? She has been on sulcal fate therapy for the last 3 months.? She had 1 biopsy of her gastric antrum which is negative for H. pylori.? I would like to recheck her for H. pylori and do more as biopsies along with evaluating her small bowel via endoscopy.? I would also recommend that she get biochemical testing including ENDER, ANCA, ESR, CRP, CBC, CMP, stool for H. pylori, stool lactoferrin. (2) Nausea & vomiting: ?Status:?Chronic ?Plan: She did have 2 episodes of nausea vomiting.? It is happening more frequently despite the use of sulcal fate therapy.? The differential diagnosis for that would be idiopathic gastroparesis, pyloric stenosis, small bacterial overgrowth.? She should undergo gastric emptying study for evaluation of her upper GI tract.? We will also get a upper GI with small bowel follow-through to look for any stricturing disease. ? ? ? Orders: Orders Misc Procedure Today R11.2 - Nausea with vomiting, unspecified, R19.4 - Change in bowel habit ? H. PYLORI STOOL AG Today R11.2 - Nausea with vomiting, unspecified, R19.4 - Change in bowel habit ? CRP Today R11.2 - Nausea with vomiting, unspecified, R19.4 - Change in bowel habit ? LDH Today R11.2 - Nausea with vomiting, unspecified, R19.4 - Change in bowel habit ? Erythrocyte Sed Rate Today R11.2 - Nausea with vomiting, unspecified, R19.4 - Change in bowel habit ? ANCA Today R11.2 - Nausea with vomiting, unspecified, R19.4 - Change in bowel habit ? Celiac Disease Profile Today R11.2 - Nausea with vomiting, unspecified, R19.4 - Change in bowel habit ? Immunoglobulin E Today R11.2 - Nausea with vomiting, unspecified, R19.4 - Change in bowel habit ? Vitamin B12 Today R11.2 - Nausea with vomiting, unspecified, R19.4 - Change in bowel habit ? ENDER Comprehensive Panel Today R11.2 - Nausea with vomiting, unspecified, R19.4 - Change in bowel habit ? Calprotectin, Stool Today R11.2 - Nausea with vomiting, unspecified, R19.4 - Change in bowel habit ? Stool Lactoferrin/WBC Today K58.9 - Irritable bowel syndrome without diarrhea, R11.2 - Nausea with vomiting, unspecified, R19.4 - Change in bowel habit ? KATHY + Protein Elect, Serum Today R11.2 - Nausea with vomiting, unspecified, R19.4 - Change in bowel habit ? Comprehensive Metabolic Profil Today R11.2 - Nausea with vomiting, unspecified, R19.4 - Change in bowel habit ? CBC W/Diff, Automated Today K58.9 - Irritable bowel syndrome without diarrhea, R11.2 - Nausea with vomiting, unspecified, R19.4 - Change in bowel habit ? I have re-examined the patient. There are no clinical changes since date of exam.
--- NOTE | 2022-06-20 11:00 | IMM_PTH ---
PATIENT: ELMER TSE LOC: EN U#:[id number] AGE/SX: 71/F ROOM: RE06/20/[address]: Dr. Joseph De La Cruz DO : 1950 BED: DIS: 06/20/2022 SPEC #: [id number] RECD: 06/21/22 13:05 STATUS: SINAI REHasmukh #: [id number] CARMELO: 06/20/22 11:[address]: Joseph De La Cruz DEPT: IMMUNOHISTOCHEMISTRY RECD BY: Stephany Doshi ENTERED: 06/21/22 13:06 SP TYPE: IMMUNO OTHR DR: Dr. Cayetano Lindsay MD Tissues: C - Stomach, NOS Procedures: H Pylori (initial) PHYSICIAN & INSTITUTION [place] [id number] SPECIMEN INFORMATION: Tissue Source: C ? Gastric body biopsy Clinical Info: Change in bowel habits, nausea and vomiting Specimen Number: [id number] CPT code: 43548 METHODOLOGY: Deparaffinized sections of prefer/formalin-fixed tissue or PAP/DQ stained slides are incubated with monoclonal/polyclonal antibodies/oligonucleotide probes. Localization is made via biotin free immunoperoxidase method. Appropriate controls are performed and reacted as expected. Results on target cell population are indicated in the following table: RESULTS: ANTIBODY / CLONE RESULT Block C H Pylori (polyclonal) negative These tests were developed and their performance characteristics determined by [facility]. They may not have been cleared or approved by the U.S. Food and Drug Administration. The FDA has determined that such clearance or approval is not necessary. The above immunohistochemical/dualISH markers are ordered and reviewed by the Pathologist. INTERPRETATION: C. Gastric body, biopsy: Negative for Helicobacter pylori organisms. ANGELIC:zander 06/22/2022
[2022-06-20 11:17] VITALS: BP 114/61; BP 90/69; PULSE 64; RESP 14; TEMP 37; O2SAT 97
--- NOTE | 2022-06-20 11:19 | OP.EGD_ITS ---
Patient Name: Hedy Mitchell Procedure Date: 06/20/2022 10:58 AM Date of : 1950 Age: 71 Procedure: Upper GI endoscopy Indications: Dysphagia, Suspected esophageal reflux Providers: Joseph De La Cruz DO Medicines: Monitored Anesthesia Care Patient Profile: This is a 71 year old female. Refer to note in patient chart for documentation of history and physical. Patient has symptoms of chronic epigastric abdominal pain and dysphagia with both liquids and solids. Complications: No immediate complications. Procedure: Pre-Anesthesia Assessment: - Prior to the procedure, a History and Physical was performed, and patient medications and allergies were reviewed. The risks and benefits of the procedure and the sedation options and risks were discussed with the patient. All questions were answered and informed consent was obtained. Patient identification and proposed procedure were verified by the physician in the pre-procedure area. Mental Status Examination: alert and oriented. Airway Examination: normal oropharyngeal airway and neck mobility. Respiratory Examination: clear to auscultation. CV Examination: normal. Prophylactic Antibiotics: The patient does not require prophylactic antibiotics. Prior Anticoagulants: The patient has taken no previous anticoagulant or antiplatelet agents. ASA Grade Assessment: II - A patient with mild systemic disease. After reviewing the risks and benefits, the patient was deemed in satisfactory condition to undergo the procedure. The anesthesia plan was to use monitored anesthesia care (MAC). Immediately prior to administration of medications, the patient was re-assessed for adequacy to receive sedatives. The heart rate, respiratory rate, oxygen saturations, blood pressure, adequacy of pulmonary ventilation, and response to care were monitored throughout the procedure. The physical status of the patient was re-assessed after the procedure. After obtaining informed consent, the endoscope was passed under direct vision. Throughout the procedure, the patient's blood pressure, pulse, and oxygen saturations were monitored continuously. The gastroscope was introduced through the mouth, and advanced to the second part of duodenum. The upper GI endoscopy was accomplished without difficulty. The patient tolerated the procedure well. Scope In: 11:04:37 AM Scope Out: 11:12:23 AM Total Procedure Duration Time 0 hours 7 minutes 46 seconds Findings: The upper third of the esophagus and middle third of the esophagus were moderately tortuous. A moderate Schatzki ring was found in the lower third of the esophagus. A guidewire was placed and the scope was withdrawn. Dilation was performed with a Savary dilator with no resistance at 54 Fr. The dilation site was examined and showed moderate improvement in luminal narrowing. Estimated blood loss was minimal. The Z-line was irregular and was found 38 cm from the incisors. Biopsies were taken with a cold forceps for histology. Verification of patient identification for the specimen was done. Estimated blood loss was minimal. A medium-sized hiatal hernia was present. Patchy mildly erythematous mucosa without bleeding was found in the gastric antrum. Biopsies were taken with a cold forceps for histology. Verification of patient identification for the specimen was done. Estimated blood loss was minimal. No gross lesions were noted in the first portion of the duodenum. Biopsies were taken with a cold forceps for histology. Verification of patient identification for the specimen was done. Estimated blood loss was minimal. Impression: - Tortuous esophagus. - Moderate Schatzki ring. Dilated. - Z-line irregular, 38 cm from the incisors. Biopsied. - Medium-sized hiatal hernia. - Erythematous mucosa in the antrum. Biopsied. - No gross lesions in the first portion of the duodenum. Biopsied. Recommendation: - Discharge patient to home. - Resume previous diet. - Continue present medications. - Await pathology results. Procedure Code(s): --- Professional --- 58447, Esophagogastroduodenoscopy, flexible, transoral; with insertion of guide wire followed by passage of dilator(s) through esophagus over guide wire 28191, 59,51, Esophagogastroduodenoscopy, flexible, transoral; with biopsy, single or multiple CPT copyright 2017 [employer]. All rights reserved. The codes documented in this report are preliminary and upon binder operator review may be revised to meet current compliance requirements. Joseph De La Cruz DO 06/20/2022 11:19:12 AM This report has been signed electronically. Number of Addenda: 1 Note Initiated On: 06/20/2022 10:58 AM Addendum Number: 1 Addendum Date: 07/26/2022 5:58:15 AM MAC was used as sedation for this procedure. Joseph De La Cruz DO 07/26/2022 5:58:24 AM This report has been signed electronically.
[2022-06-20 11:20] VITALS: BP 114/61; BP 88/71; PULSE 64; RESP 16; O2SAT 97
--- NOTE | 2022-06-20 11:20 | OP.CCLET_ITS ---
07/26/2022 Cayetano Lindsay [address] [place] [address] Re : Upper GI endoscopy procedure for Hedy Mitchell Dear Dr. Lindsay This procedure was performed on Monday, June 20, 2022. My impressions and recommendations are as follows: Impressions : - Tortuous esophagus. - Moderate Schatzki ring. Dilated. - Z-line irregular, 38 cm from the incisors. Biopsied. - Medium-sized hiatal hernia. - Erythematous mucosa in the antrum. Biopsied. - No gross lesions in the first portion of the duodenum. Biopsied. Recommendations : - Discharge patient to home. - Resume previous diet. - Continue present medications. - Await pathology results. My findings are described in the full procedure note, which is enclosed. If I can be of further assistance, please feel free to contact me at . Sincerely, Joseph Friend, 06/20/2022 11:19:12 AM This report has been signed electronically.
[2022-06-20 11:25] VITALS: BP 114/61; BP 97/69; PULSE 63; RESP 16; O2SAT 96
[2022-06-20 11:30] VITALS: BP 114/61; BP 93/74; PULSE 64; RESP 16; O2SAT 94
[2022-06-20 11:35] VITALS: BP 114/61; BP 96/74; PULSE 65; RESP 16; TEMP 36.7; O2SAT 98
--- NOTE | 2022-06-21 11:00 | EGD_PTH ---
PATIENT: ELMER TSE LOC: EN U#:[id number] AGE/SX: 71/F ROOM: RE06/20/[address]: Dr. Joseph De La Cruz DO : 1950 BED: DIS: 06/20/2022 SPEC #: [id number] RECD: 06/21/22 13:58 STATUS: SINAI GHADA #: [id number] CARMELO: 06/21/22 11:[address]: Joseph De La Cruz DEPT: SURGICAL PATHOLOGY RECD BY: Shannan Jama ENTERED: 06/21/22 12:47 SP TYPE: EGD BIOPSY [facility] DR: Dr. Cayetano Lindsay MD Tissues: A - Esophagus, NOS B - Duodenum, NOS C - Gastric mucous membrane Procedures: Special Stain Group II Surgery Specimen Level IV Alcian Blue/PAS (control) HEADER OPERATION[place] [place] and dilation PRE-OP DIAGNOSIS: Change in bowel habits, nausea and vomiting TISSUE SUBMITTED: A ? Distal esophagus, B ? Duodenum biopsy, C ? Gastric body biopsy MICROSCOPIC DIAGNOSIS A. Distal esophagus, biopsy: Fragments of gastroesophageal mucosa with moderate chronic inflammation, minimal acute inflammation and changes consistent with gastroesophageal reflux disease. Intestinal metaplasia (goblet cell metaplasia) not identified. See comment. B. Duodenum, biopsy: A fragment of duodenal mucosa with mild Artur gland hyperplasia. C. Gastric body, biopsy: Mild gastritis. See microscopic description and comment. SJ:zander 06/22/2022 COMMENT A. Alcian blue/PAS stain with matched control is used in the evaluation of the specimen. C. The results of immunohistochemistry for Helicobacter pylori will be reported separately ([id number]). MICROSCOPIC DESCRIPTION Slides are reviewed. C. The specimen shows fragments of gastric mucosa with chronic inflammatory cell infiltrates in the lamina propria consisting of lymphocytes and plasma cells, consistent with mild chronic gastritis. GROSS DESCRIPTION A - Received in fixative is one container labeled with the patient's name and designated distal esophagus biopsy. The specimen consists of multiple irregular fragments of light joshi soft tissue that in aggregate measure 1.5 x 0.8 x 0.1 cm. The specimen is totally submitted in one cassette. B - Received in fixative is one container labeled with the patient's name and designated duodenum biopsy. The specimen consists of one irregular fragment of light joshi soft tissue that measures 0.4 x 0.4 x 0.1 cm. The specimen is totally submitted in one cassette. C - Received in fixative is one container labeled with the patient's name and designated gastric body biopsy. The specimen consists of one irregular fragment of light joshi soft tissue that measures 0.3 x 0.3 x 0.1 cm. The specimen is totally submitted in one cassette. / SJ:rg 06/21/2022 TC:3 CPT: 64218 x3, 70264
== END 2022-06-20 12:06 | disposition home or self-care (01) ==
LOC: EN 09:58 → AC 09:59
PROVIDERS: PCP Family Medicine; Referring Provider Family Medicine; Visit Provider Internal Medicine Gastroenterology
PROC: 0DJ08ZZ Inspection of Upper Intestinal Tract, Via Natural or Artificial Opening Endoscopic (ICD-10-PCS; CPT 43235; principal; 2022-06-20 10:55)
DX: K29.70 Gastritis, unspecified, without bleeding (principal); K58.9 Irritable bowel syndrome, unspecified; E78.00 Pure hypercholesterolemia, unspecified; Z85.6 Personal history of leukemia; Z78.0 Asymptomatic menopausal state; Z79.899 Other long term (current) drug therapy; G24.9 Dystonia, unspecified; E07.9 Disorder of thyroid, unspecified; K44.9 Diaphragmatic hernia without obstruction or gangrene; K22.2 Esophageal obstruction
CPT/HCPCS: 43248; 43239; 88305; 88313; 88342; J7120; C1769; J2405

== ENCOUNTER 2022-11-20 14:45 | Emergency (ER) | payer MEDICARE, SELFPAY ==
[2022-11-20 14:45] VITALS: BP 129/103; PULSE 91; RESP 16; TEMP 36.6; O2SAT 100; BMI 26.9
--- NOTE | 2022-11-20 14:51 | EKG12_ITS ---
Test Reason : PALPITATIONS Blood Pressure : / mmHG Vent. Rate : 082 BPM Atrial Rate : 082 BPM P-R Int : 158 ms QRS Dur : 072 ms QT Int : 364 ms P-R-T Axes : 072 050 072 degrees QTc Int : 425 ms Sinus rhythm with occasional Premature ventricular complexes Otherwise normal ECG Confirmed by RISHABH PETTIT, MERA ([id number]), art editor ДМИТРИЙ CONTRERAS ([id number]) on 11/21/2022 2:06:01 PM Referred By: CHAY Confirmed By:MERA KEATING MD
[2022-11-20 15:56] LABS: Absolute Neutrophil Count 4.1 X10^3/uL (2.0-7.7); Basophil# 0.04 X10^3/uL; Basophil% 0.1 % (0-1); Eosinophil# 0.09 X10^3/uL; Eosinophils% 0.3 % (0-5); Hematocrit 42.4 % (37-47); Hemoglobin 13.4 g/dL (12.0-15.0); Lymphocyte % 84.6 % (19-41); Mean Corp Hgb Conc 31.6 g/dL (32-36); Mean Corpuscular Hgb 30.6 pg (27.0-32.0); Mean Corpuscular Volume 96.8 fL (81-99); Monocyte# 0.73 X10^3/uL; Monocyte% 2.2 % (0-10); NRBC Flagged by Analyzer 0 % (0-5); Neutrophil # 4.14 X10^3/uL (2.7-7.7); Neutrophil % 12.6 % (47-70); POSITIVE COUNT YES; POSITIVE DIFFERENTIAL YES; POSITIVE MORPHOLOGY YES; Platelet Count 237 K/mm3 (150-450); RBC Distribution Width CV 13.4 % (11.6-14.6); RBC Distribution Width SD 47.8 fl (35.1-43.9); Red Blood Count 4.38 M/mm3 (4.2-5.4)
--- NOTE | 2022-11-20 15:56 | RAD_ITS ---
STUDY: X-RAY CHEST REASON FOR EXAM: Female, 72 years old. chest pain TECHNIQUE: AP portable COMPARISON: None. FINDINGS: The lungs are clear and expanded. [Blunted right costophrenic angle most likely representing pleural thickening.. Normal size heart. Normal mediastinum and rigo. Normal visualized pulmonary arteries. Normal visualized aortic arch and descending thoracic aorta. Dorsal spine and shoulders demonstrate degenerative changes. Normal visualized ribs, and clavicles. There are also degenerative changes of the shoulders There is no demonstrated abnormality of the visualized soft tissue structures of the upper abdomen. RAD/Chest 1 View (Portable) IMPRESSION: No acute cardiopulmonary pathology. Electronically Signed: Joel Plummer MD at 16:11 EST ,
[2022-11-20 15:59] LABS: Differential Indicated SCAN CRITERIA MET
[2022-11-20 16:04] VITALS: PULSE 77; RESP 19; O2SAT 98
--- NOTE | 2022-11-20 16:04 | EX.ED.DYSGE1 ---
HPI History of Present Illness Chief Complaint: Palpitations Narrative Narrative: 72-year-old female presenting with palpitations and feeling of lightheadedness. Patient reports symptoms of this for the last 2 to 3 days. She states that the last couple of days she has had 20-minute episodes of these. Today she was at [facility] and states that she had one that lasted about an hour and she felt unsteady. She went to go check her blood pressure at [facility] and her blood pressure was normal. Patient states he has not had a fever, chills, cough. She denies chest pain or shortness of breath except for during episodes where she feels like she is having palpitations. Patient does have significant history of anxiety and hypothyroidism. [facility] Medical History Bladder disease Bruising Difficulty chewing Difficulty swallowing Dystonia Former smoker Heartburn Hepatitis High cholesterol History of echocardiogram History of leukemia History of stress test Low iron Post-menopausal Shortness of breath on exertion Thyroid disease Wears glasses Home Medications alpha lipoic acid 600 mg capsule 600 mg PO DAILY 05/26/21 [History Last Taken 06/19/22] ascorbic acid (vitamin C) 1,000 mg tablet,extended release (Vitamin C ER) 250 mg PO DAILY 05/26/21 [History Last Taken 06/19/22] atorvastatin 20 mg tablet (Lipitor) 20 mg PO QODAY 05/26/21 [History Last Taken 06/19/22] biotin 5,000 mcg disintegrating tablet 5,000 mcg PO DAILY 05/26/21 [History Last Taken 06/19/22] cholecalciferol (vitamin D3) 25 mcg (1,000 unit) tablet (Vitamin D3) 25 mcg PO DAILY 05/26/21 [History Last Taken 06/19/22] clonazepam 0.5 mg tablet 0.5 mg PO BID 05/26/21 [History Last Taken 06/20/22] coenzyme Q10 30 mg capsule (CoQ-10) 30 mg PO DAILY 05/26/21 [History Last Taken 06/19/22] levothyroxine 112 mcg tablet (Synthroid) 112 mcg PO QHS 05/26/21 [History Last Taken 06/19/22] magnesium 250 mg tablet 250 mg PO BID 05/26/21 [History Last Taken 06/19/22] trazodone 150 mg tablet 150 mg PO QHS PRN Sleep 05/26/21 [History Last Taken 06/19/22] vitamin B complex 1 tab PO QODAY 05/26/21 [History Last Taken 06/19/22] calcium citrate 500 mg PO DAILY 06/15/22 [History Last Taken 06/19/22] sucralfate 1 gram tablet 1 g PO BID 06/15/22 [History Last Taken 06/19/22] Allergy/AdvReac Type Severity Reaction Status Date / Time ciprofloxacin [From Cipro] Allergy Rash Verified 11/20/22 14:47 Sulfa (Sulfonamide Allergy Rash Verified 11/20/22 14:47 Antibiotics) metoclopramide [From Reglan] AdvReac Other Verified 11/20/22 14:47 Surgical History History of esophagogastroduodenoscopy (EGD) History of hysteroscopy S/P partial lobectomy of lung Social History Smoking Status: Former smoker EXAM Physical Exam Const Vital Signs: 11/20/22 14:45 11/20/22 15:53 11/20/22 16:04 Temperature 98 F Temperature Source Temporal Pulse Rate 91 77 Respiratory Rate 16 19 H Blood Pressure 129/103 H Blood Pressure Mean 111 Pulse Ox 100 98 Oxygen Delivery Method Room Air Room Air Room Air 11/20/22 17:08 Temperature Temperature Source Pulse Rate 76 Respiratory Rate 18 Blood Pressure Blood Pressure Mean Pulse Ox 100 Oxygen Delivery Method Room Air MDM MDM MDM Narrative Medical decision making narrative: Patient presenting with palpitations and lightheadedness. She states that this started a couple days ago she had intermittent episodes. Her palpitations were persistent today. She states she sees Dr. 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 EKG was obtained on my interpretation this is a sinus rhythm with a ventricular rate of 82 bpm with occasional PVCs. Chest x-ray was obtained and on my interpretation is no acute cardiopulmonary process. CBC was obtained to assess hemoglobin, high-grade, differential. Her white blood cell count is 33 which appears to be her baseline. Creatinine slightly elevated today at 1.03. TSH, T4, T3 process due to the patient's history of thyroid disease are all within normal limits. At this point I feel patient is stable for outpatient follow-up. She is discharged home in stable condition. She states although she follows with Dr. Tamez she would like to see a low pressure kettle operator from [facility]. This was provided. Impression 1. Palpitations 2. Lightheadedness 3. Leukocytosis 4. History of hypothyroidism Lab Data Attestation: I reviewed the patient's lab results. Labs: Laboratory Results - last 24 hr 11/20/22 11/20/22 11/20/22 15:45 15:45 15:45 WBC 33.0 H* RBC 4.38 Hgb 13.4 Hct 42.4 MCV 96.8 MCH 30.6 MCHC 31.6 L RDW Std Deviation 47.8 H RDW Coeff of Rafa 13.4 Plt Count 237 MPV 10.0 Immature Gran % (Auto) 0.200 Neut % (Auto) 12.6 L Lymph % (Auto) 84.6 H Hopkins % (Auto) 2.2 Eos % (Auto) 0.3 Baso % (Auto) 0.1 Absolute Neuts (auto) 4.1 Absolute Lymphs (auto) 27.90 H Nucleated RBC % 0 Differential Comment SCANNED Diff Path Review May foll Atypical Lymphocytes 1+ Reactive Lymphocytes 1+ Smudge Cells 2+ Sodium 141 Potassium 4.4 Chloride 107 Carbon Dioxide 30.0 Anion Gap 4 L BUN 15 Creatinine 1.03 H Estim Creat Clear Calc 47.30 Est GFR (MDRD) Af Amer 68 Est GFR (MDRD) Non-Af 56 L BUN/Creatinine Ratio 14.6 Glucose 109 H Calcium 9.0 Troponin I High Sens 5 TSH 0.53 Free T4 1.45 Free T3 pg/dL 2.4 Radiography Diagnostic Testing: Clinical Impression(s) from Imaging Studies Chest X-Ray 11/20/22 15:56 IMPRESSION: No acute cardiopulmonary pathology. Electronically Signed: Joel Plummer MD at 16:11 EST , Discharge Plan Triage Chief Complaint: Palpitations ED Provider: Zoran Grider Dx/Rx/DC Orders Instructions: ED Palpitations Prescriptions: No Action atorvastatin [Lipitor] 20 mg Tablet 20 mg PO QODAY clonazepam 0.5 mg tablet 0.5 mg PO BID Label Comments: take 1 tablet by mouth twice a day Vitamin C 1,000 mg Tablet Extended Release 250 mg PO DAILY trazodone 150 mg Tablet 150 mg PO QHS PRN (Reason: Sleep) vitamin B complex [Vitamin B Complex-100] Tablet 1 tab PO QODAY magnesium 250 mg Tablet 250 mg PO BID coenzyme Q10 [CoQ-10] 30 mg Capsule 30 mg PO DAILY levothyroxine [Synthroid] 112 mcg Tablet 112 mcg PO QHS cholecalciferol (vitamin D3) [Vitamin D3] 25 mcg (1,000 unit) Tablet 25 mcg PO DAILY alpha lipoic acid 600 mg Capsule 600 mg PO DAILY biotin 5,000 mcg Tablet,Disintegrating 5,000 mcg PO DAILY sucralfate 1 gram tablet 1 g PO BID Label Comments: take 1 tablet by mouth before meals and at bedtime calcium citrate 250 mg calcium Tablet 500 mg PO DAILY Primary Care Provider: Cayetano Linsday Referrals: Price Callahan MD [Med Staff - Active Staff] - 3-5 Days Cayetano Lindsay MD [Primary Care Provider] - Disposition Disposition: Home, Self Care
[2022-11-20 16:12] LABS: Anion Gap 4 (5-15); BUN 15 mg/dL (7-18); BUN/Creat Ratio 14.6 RATIO (10-20); Chloride 107 mmol/L (98-107); Creatinine, Serum 1.03 mg/dL (0.55-1.02); EST Glomerular Filtration Rate 56 mL/min (>60); Est Glom Filt Rate - Afr Amer 68 mL/min (>60); Glucose 109 mg/dL (74-106); Potassium 4.4 mmol/L (3.5-5.1); Sodium Level 141 mmol/L (136-145); Troponin-I HS 5 pg/mL (3.0-54.0)
[2022-11-20 16:16] LABS: Atypical Lymphocyte 1+ %; Differential Comment SCANNED; Reactive Lymphocyte 1+; Smudge Cells 2+
[2022-11-20 17:06] LABS: Free T3 2.4 pg/mL (2.18-3.98); T4 Free Direct 1.45 ng/dL (0.76-1.46); Thyroid Stim Hormone (TSH) 0.53 uIU/mL (0.358-3.74)
[2022-11-20 17:08] VITALS: PULSE 76; RESP 18; O2SAT 100
[2022-11-21 12:39] LABS: Pathologist Review Reviewed
== END 2022-11-20 18:44 | disposition home or self-care (01) ==
PROVIDERS: Emergency Provider Student in an Organized Health Care Education/Training Program; PCP Family Medicine; Visit Provider Student in an Organized Health Care Education/Training Program
DX: R00.2 Palpitations (principal); R42 Dizziness and giddiness; I49.3 Ventricular premature depolarization; D72.829 Elevated white blood cell count, unspecified; E78.00 Pure hypercholesterolemia, unspecified; E03.9 Hypothyroidism, unspecified; F41.9 Anxiety disorder, unspecified; Z79.890 Hormone replacement therapy; Z79.899 Other long term (current) drug therapy; Z87.891 Personal history of nicotine dependence
CPT/HCPCS: 71045; 80048; 84439; 84443; 84481; 84484; 85025; 93005; 99284; A4216

== ENCOUNTER → 2022-12-14 | Outpatient (CLI) | payer MEDICARE, SELFPAY ==
--- NOTE | 2022-12-14 13:02 | CT_ITS ---
STUDY: CT ABDOMEN AND PELVIS WITH AND WITHOUT CONTRAST REASON FOR EXAM: Female, 72 years old. MICROSCOPIC HEMATURIA. History of lung cancer and prior right lobectomy history of hematuria. RADIATION DOSAGE (If Supplied By Facility): CTDIvol = ( 19.30 ) mGy, DLP = ( 2517.20 ) mGycm TECHNIQUE: Transaxial images were obtained from the dome of the diaphragm to the symphysis pubis without oral contrast. IV 100mL Isovue-300 was administered. Sagittal and coronal images were reconstructed. Individualized dose optimization techniques were used for this CT. COMPARISON: None. FINDINGS: The visualized lung bases are unremarkable. The visualized portions of the heart are within normal limits. Normal liver. Stone filled gallbladder. Normal spleen. Normal pancreas. Normal bilateral adrenal glands. Normal right kidney. Normal left kidney. There is a small hiatal hernia. Normal small intestine. Normal colon. The appendix is visualized and appears normal. There is scattered atherosclerotic calcification of the abdominal aorta, without a demonstrated aneurysm. Normal inferior vena cava. Normal retroperitoneum. Normal urinary bladder. There is a small umbilical hernia containing fat. Normal osseous structures. CT/CT Abd/Pelvis W/WO Contrast IMPRESSION: Gallstones. No acute abnormality is seen. Electronically Signed: Marco Rudd MD at 14:18 EST ,
== END | disposition home or self-care (01) ==
LOC: CT 13:00
PROVIDERS: PCP Family Medicine; Referring Provider Urology; Visit Provider Urology
DX: R31.21 Asymptomatic microscopic hematuria (principal)
CPT/HCPCS: 74178; Q9967

== ENCOUNTER → 2023-01-18 | Outpatient (CLI) | payer MEDICARE, SELFPAY ==
--- NOTE | 2023-01-18 10:52 | ECHOD_ITS ---
Reason For Study: Palpitations Procedure This was a 2D Doppler, Color Flow transthoracic echocardiogram. Parasternal images taken with patient laying on right side. Exam performed in department. Left Ventricle Normal LV size. Left ventricular systolic function is normal. The estimated ejection fraction is 60 %. No regional wall motion abnormalities noted. Right Ventricle Normal RV size. Normal systolic function. Atria Normal left atrium. Normal right atrium. Mitral Valve Normal mitral valve. Tricuspid Valve Normal tricuspid valve. Mild tricuspid valve insufficiency. Pulmonary artery systolic pressure is 23 mmHg. Aortic Valve Normal aortic valve. Trisinus/trileaflet aortic valve. Pulmonic Valve Normal pulmonic valve. Great Vessels Normal aortic root. The pulmonary artery is normal size. Normal inferior vena cava. Pericardium/Pleural No pericardial effusion. MMode/2D Measurements & Calculations LVIDd: 4.0 cm IVSd: 0.82 cm Ao root diam: 3.3 cm LVIDs: 2.6 cm LVPWd: 1.0 cm LA dimension: 3.3 cm RVDd: 3.1 cm FS: 34.5 % LAV(MOD-bp): 28.3 ml LA A4 area: 11.0 cm2 LAV(MOD-bp) Indexed: 15.0 ml/m2 LAV(MOD-sp2): 29.0 ml LAV(MOD-sp4): 23.8 ml Time Measurements MV dec time: 0.20 sec Doppler Measurements & Calculations MV E max gregory: 59.0 cm/sec Lat Peak E' Gregory: 7.4 cm/sec Med Peak E' Gregory: 6.4 cm/sec MV A max gregory: 56.0 cm/sec E/E' lat: 8.0 E/E' med: 9.2 MV E/A: 1.1 MV V2 max: 55.7 cm/sec MV P1/2t max gregory: 49.7 cm/sec Ao V2 max: 101.4 cm/sec MV max P.2 mmHg MV P1/2t: 51.5 msec Ao max P.1 mmHg MV V2 mean: 32.1 cm/sec MV dec slope: 282.9 cm/sec2 Ao V2 mean: 71.3 cm/sec MV mean P.48 mmHg MVA(P1/2t): 4.3 cm2 Ao mean P.3 mmHg MV V2 VTI: 17.4 cm Ao V2 VTI: 20.9 cm AV (velocity ratio): 0.87 LV V1 max: 79.4 cm/sec MR max gregory: 456.8 cm/sec PA V2 max: 64.3 cm/sec LV V1 max P.5 mmHg MR max P.5 mmHg LV V1 mean P.1 mmHg LV V1 mean: 48.9 cm/sec LV V1 VTI: 18.3 cm TR max gregory: 218.5 cm/sec TR max P.1 mmHg ECHO/Echo Complete Interpretation Summary Normal LV size. Left ventricular systolic function is normal. The estimated ejection fraction is 60 %. Mild tricuspid valve insufficiency. Structurally normal valves. Ordering Physician: Price Callahan Referring Physician: MD Angélica Cayetano Performed By: Ashwin Mercedes, [facility]
== END | disposition home or self-care (01) ==
PROVIDERS: PCP Family Medicine; Visit Provider Internal Medicine Cardiovascular Disease
DX: R00.2 Palpitations (principal)
CPT/HCPCS: 93225; 93226; 93306

== ENCOUNTER → 2023-03-19 | Outpatient (CLI) | payer MEDICARE, SELFPAY ==
--- NOTE | 2023-03-19 10:16 | RAD_ITS ---
STUDY: X-RAY - ABDOMEN/PELVIS REASON FOR EXAM: Female, 72 years old. Sitzmarks marker placement. TECHNIQUE: COMPARISON: None. FINDINGS: Normal visualized lung bases. Normal bowel gas pattern with air seen to the rectosigmoid. No disproportionate dilatation or free abdominal air. Most proximal marker is in the region of the hepatic flexure of the descending colon. 3 markers in the distal descending colon and 3 markers region of the rectosigmoid. The visualized liver, spleen and kidneys are grossly normal in size and morphology. Normal soft tissue structures. Normal visualized osseous structures. RAD/Abdomen Single View IMPRESSION: Sitzmarks markers distribution as described. Electronically Signed: Osito Prescott MD at 10:54 EDT ,
== END | disposition home or self-care (01) ==
PROVIDERS: PCP Family Medicine; Referring Provider Internal Medicine Gastroenterology; Visit Provider Internal Medicine Gastroenterology
DX: K59.00 Constipation, unspecified (principal)
CPT/HCPCS: 74018

== ENCOUNTER → 2023-03-21 | Outpatient (CLI) | payer MEDICARE, SELFPAY ==
--- NOTE | 2023-03-21 10:33 | RAD_ITS ---
STUDY: X-RAY - ABDOMEN/PELVIS REASON FOR EXAM: Female, 72 years old. Sitzmarks markers follow-up. TECHNIQUE: Single AP view of the abdomen / pelvis on 2 images. COMPARISON: March 19, 2023. FINDINGS: Normal visualized lung bases. No Sitzmarks markers identified. Normal bowel gas pattern without disproportionate dilatation or free intraperitoneal air. The visualized liver, spleen and kidneys are grossly normal in size and morphology. Normal soft tissue structures. Normal visualized osseous structures. RAD/Abdomen Single View IMPRESSION: No Sitzmarks markers present. Electronically Signed: Osito Prescott MD at 13:24 EDT ,
== END | disposition home or self-care (01) ==
LOC: RAD 10:27
PROVIDERS: PCP Family Medicine; Referring Provider Internal Medicine Gastroenterology; Visit Provider Internal Medicine Gastroenterology
DX: K59.00 Constipation, unspecified (principal)
CPT/HCPCS: 74018

== ENCOUNTER 2023-11-20 05:27 | Day surgery (SDC) | payer MEDICARE, SELFPAY ==
[2023-11-20 05:57] VITALS: BP 111/68; PULSE 88; RESP 16; TEMP 36.2; O2SAT 100; BMI 27.2
[2023-11-20] MEDS: Lactated Ringers 1,000 ML 15 ML IV (06:00)
--- NOTE | 2023-11-20 06:30 | EGD_PTH ---
PATHOLOGY RESULTS PATIENT: ELMER TSE LOC: EN U#:[id number] AGE/SX: 73/F ROOM: RE11/20/[address]: Dr. Joseph De La Cruz DO : 1950 BED: DIS: 11/20/2023 SPEC #: [id number] RECD: 11/20/23 11:31 STATUS: SINAI GHADA #: [id number] CARMELO: 11/20/23 06:[address]: Joseph De La Cruz DEPT: SURGICAL PATHOLOGY RECD BY: Natasha Posada ENTERED: 11/20/23 11:32 SP TYPE: EGD BIOPSY [facility] DR: Dr. Cayetano Lindsay MD Tissues: Esophageal mucous membrane Procedures: Special Stain Group II Surgery Specimen Level IV Alcian Blue/PAS (control) HEADER OPERATION: EGD, biopsy and dilatation PRE-OP DIAGNOSIS: Constipation, difficulty swallowing, nausea and vomiting TISSUE SUBMITTED: Distal esophagus biopsy MICROSCOPIC DIAGNOSIS Distal esophagus, biopsy: Fragments of gastroesophageal mucosa with moderate chronic inflammation, minimal acute inflammation and changes consistent with gastroesophageal reflux disease. Intestinal metaplasia (goblet cell metaplasia) not identified. See comment. ANGELIC:zander 11/21/2023 COMMENT Alcian blue/PAS stain with matched control is used in the evaluation of the specimen. MICROSCOPIC DESCRIPTION Slides are reviewed. GROSS DESCRIPTION Received in fixative is one container labeled with the patient's name and designated distal esophagus biopsy. The specimen consists of multiple irregular fragments of light joshi soft tissue that in aggregate measure 1.0 x 0.5 x 0.1 cm. The specimen is totally submitted in one cassette. / ANGELIC:zander 11/20/2023 TC:3 CPT: 26764, 79445
--- NOTE | 2023-11-20 06:37 | HP.PCM_ITS ---
History and Physical Date of Admission: 11/20/23 ELMER TSE, is a 72 F who presents to the office today for follow up. PMH CLL does not require treatment at this time; Dystonia; hypothyroid. ?FH father and daughter, Crohn?s disease. Mother colitis.? ? EGD and colonoscopy 05.29.[address] Faustin [facility] for lower abdominal pain and jose nge in bowel habits. EGD found gastritis, biopsy proven. H.Pylori negative.? Colonoscopy without abnormalities found. Biopsy without pathologic changes.? ? *BGI Established 05.25.22. Postprandial, evening, heartburn with bloating and abdominal pain relieved by emesis; occurs once every 3-4 weeks. ? Historical constipation with no bowel movement with need to evacuate and requires manual disimpaction. She is taking fiber and two magnesium a day for constipation. ? Currently having postprandial urgent soft stools with narrow caliber or normal caliber or a light brown/reddish color without oil/floating/mucous/blood. Reports she has IBS. ? Biochemical workup ?H.Pylori Ig (not drawn), CRP, LDH, ESR, ANCA, celiac, GAME, vit B12, ENDER comp, KATHY, CMP without pertinent abnormalities.? WBC H33.4? Stool testing H.Pylori, calprotectin, lactoferrin WNL.? EGD 06.20.22?noting tortuous esophagus with inflammation; moderate Schatzki ring, Savary Dilator 54F; medium hiatal hernia; erythematous antrum, gastritis. H.Pylori negative.? OV 10.21.22 N/V ? improved following EGD. Bowel habit change ? since stopping PPI stools have been more consistent. ? OV 2.14.23 N/V and heartburn have begun returning in the last month with mild progression of frequency and severity. ? OV 5.24.23 has not started famotidine as she has not experienced reflux symptoms requiring attention. Feels she continues to have dysphagia with meats, feels as though it gets caught. Constipation with PRN use of stool softeners once every several weeks. Feels that prior to bed she has tenesmus requiring manual disimpaction; spontaneous movement each morning unless constipated. ?SITZ ?one R colon, six RS colon, seven total. Day 2, no remaining rings.? ? OV 10.13.23 Pt reports she is still having issues with constipation. Some relief with OTC stool softeners. Increased heartburn and dysphagia. Is thinking she needs another scope. We previously prescribed her Famotidine but she says she threw it away on accident. Has been taking tums. Quality Reporting Tobacco Screening ([facility]) Smoking Status: Former smoker Assessment and Plan Assessment and Plan (1) Constipation: Status: Chronic Qualifiers: Constipation type: slow transit constipation Qualified Code(s): K59.01 - Slow transit constipation Plan: She will get a Sitz Marker test. She has pelvic floor dysfunction. States that she does have to manually disimpact suspect that she does a pelvic floor dysfunction. We discussed the possibility of anorectal manometry. Since there has been ordered to see if there is an issue regarding her pelvic floor. She has not tried any osmotic laxatives. She has tried stool softeners but she still has to manually disimpact every night. She has not had any trauma to her pelvis. She has a possibility of bladder prolapse. She has not been diagnosed with rectocele or ureterocele. She has not had episodes of incontinence of bowel or bladder at this time. We will start aloe Vera juice and increase her magnesium citrate to 800mg to 1000mg / day (2) Difficulty swallowing: Status: Chronic Qualifiers: Dysphagia type: esophageal phase Qualified Code(s): R13.19 - Other dysphagia Plan: She is status post dilation esophageal ring, better regarding swallowing except for meat on occasion. It is not something that bothers her on a daily basis. Schedule repeat egd with dilation. (3) Nausea & vomiting: Status: Inactive Qualifiers: Vomiting type: unspecified Qualified Code(s): R11.2 - Nausea with vomiting, unspecified Plan: Nausea is a little bit worse. She was seen in the ER for some chest pain that was thought to be secondary to anxiety. However she does have a hiatal hernia did have esophagitis that was seen on upper endoscopy that caused esophageal stricture that needed to be evaluated. I suspect that her symptoms are from gastroesophageal reflux disease and possibly some underlying gastroparesis due to other medicines that she takes on a daily basis. I will give her famotidine 20mg BID. She will take that in the morning away from her thyroid medicine which she takes at night and she will follow-up approximately 4 months. Medications: New famotidine 20 mg PO BID 60 tabs 2RF I have examined the patient and the H&P has been reviewed. There are no clinical changes since date of exam.
[2023-11-20 06:56] VITALS: BP 101/67; BP 111/68; PULSE 67; RESP 14; TEMP 36.1; O2SAT 98
[2023-11-20 07:00] VITALS: BP 111/68; BP 87/66; PULSE 71; RESP 16; O2SAT 97
[2023-11-20 07:05] VITALS: BP 111/68; BP 86/62; PULSE 70; RESP 16; O2SAT 98
--- NOTE | 2023-11-20 07:07 | OP.EGD_ITS ---
Patient Name: Hedy Mitchell Procedure Date: 11/20/2023 6:30 AM Date of : 1950 Age: 73 Procedure: Upper GI endoscopy Indications: Dysphagia Providers: Joseph De La Cruz DO Referring MD: Cayetano Lindsay Medicines: Monitored Anesthesia Care Patient Profile: This is a 73 year old female. Refer to note in patient chart for documentation of history and physical. Patient has symptoms of acute cough, acute dysphagia and acute nausea. Complications: No immediate complications. Procedure: Pre-Anesthesia Assessment: - Prior to the procedure, a History and Physical was performed, and patient medications and allergies were reviewed. The risks and benefits of the procedure and the sedation options and risks were discussed with the patient. All questions were answered and informed consent was obtained. Patient identification and proposed procedure were verified by the physician in the pre-procedure area. Mental Status Examination: alert and oriented. Airway Examination: normal oropharyngeal airway and neck mobility. Respiratory Examination: clear to auscultation. CV Examination: normal. Prophylactic Antibiotics: The patient does not require prophylactic antibiotics. Prior Anticoagulants: The patient has taken no anticoagulant or antiplatelet agents. ASA Grade Assessment: II - A patient with mild systemic disease. After reviewing the risks and benefits, the patient was deemed in satisfactory condition to undergo the procedure. The anesthesia plan was to use monitored anesthesia care (MAC). Immediately prior to administration of medications, the patient was re-assessed for adequacy to receive sedatives. The heart rate, respiratory rate, oxygen saturations, blood pressure, adequacy of pulmonary ventilation, and response to care were monitored throughout the procedure. The physical status of the patient was re-assessed after the procedure. After obtaining informed consent, the endoscope was passed under direct vision. Throughout the procedure, the patient's blood pressure, pulse, and oxygen saturations were monitored continuously. The Endoscope was introduced through the mouth, and advanced to the second part of duodenum. The upper GI endoscopy was accomplished without difficulty. The patient tolerated the procedure well. Scope In: 6:45:36 AM Scope Out: 6:52:50 AM Total Procedure Duration Time 0 hours 7 minutes 14 seconds Findings: LA Grade B (one or more mucosal breaks greater than 5 mm, not extending between the tops of two mucosal folds) esophagitis with no bleeding was found 38 to 40 cm from the incisors. Biopsies were taken with a cold forceps for histology. Verification of patient identification for the specimen was done. Estimated blood loss was minimal. A moderate Schatzki ring was found at the gastroesophageal junction. A guidewire was placed and the scope was withdrawn. Dilation was performed with a Savary dilator with no resistance at 60 Fr. The dilation site was examined following endoscope reinsertion and showed moderate improvement in luminal narrowing. Estimated blood loss was minimal. Abnormal motility was noted at the cricopharyngeus. The cricopharyngeus was abnormal. There is a decrease in motility of the esophageal body. The distal esophagus/lower esophageal sphincter is patulous. Secondary peristaltic waves are noted. A medium amount of food (residue) was found in the gastric antrum. The exam was otherwise without abnormality. Food (residue) was found in the duodenal bulb. Impression: - LA Grade B reflux esophagitis with no bleeding. Biopsied. - Moderate Schatzki ring. Dilated. - Abnormal esophageal motility, suspicious for presbyesophagus. - A medium amount of food (residue) in the stomach. - The examination was otherwise normal. - Retained food in the duodenum. Recommendation: - Discharge patient to home. - Resume previous diet. - Continue present medications. - Await pathology results. Procedure Code(s): --- Professional --- 28576, Esophagogastroduodenoscopy, flexible, transoral; with insertion of guide wire followed by passage of dilator(s) through esophagus over guide wire 10654, 59,51, Esophagogastroduodenoscopy, flexible, transoral; with biopsy, single or multiple CPT copyright 2021 [employer]. All rights reserved. The codes documented in this report are preliminary and upon sec accountant review may be revised to meet current compliance requirements. Joseph De La Cruz DO 11/20/2023 7:06:32 AM This report has been signed electronically. Number of Addenda: 0 Note Initiated On: 11/20/2023 6:30 AM
--- NOTE | 2023-11-20 07:07 | OP.CCLET_ITS ---
11/20/2023 Cayetano Lindsay [address] [place] [address] Re : Upper GI endoscopy procedure for Hedy Mitchell Dear Dr. Lindsay This procedure was performed on Monday, November 20, 2023. My impressions and recommendations are as follows: Impressions : - LA Grade B reflux esophagitis with no bleeding. Biopsied. - Moderate Schatzki ring. Dilated. - Abnormal esophageal motility, suspicious for presbyesophagus. - A medium amount of food (residue) in the stomach. - The examination was otherwise normal. - Retained food in the duodenum. Recommendations : - Discharge patient to home. - Resume previous diet. - Continue present medications. - Await pathology results. My findings are described in the full procedure note, which is enclosed. If I can be of further assistance, please feel free to contact me at . Sincerely, Joseph Friend, DO 11/20/2023 7:06:32 AM This report has been signed electronically.
[2023-11-20 07:10] VITALS: BP 111/68; BP 96/64; PULSE 72; RESP 16; TEMP 36.1; O2SAT 99
[2023-11-20 07:23] VITALS: BP 111/68
== END 2023-11-20 07:40 | disposition home or self-care (01) ==
LOC: EN 05:28 → AC 05:28
PROVIDERS: PCP Family Medicine; Referring Provider Family Medicine; Visit Provider Internal Medicine Gastroenterology
PROC: 0DJ08ZZ Inspection of Upper Intestinal Tract, Via Natural or Artificial Opening Endoscopic (ICD-10-PCS; CPT 43235; principal; 2023-11-20 06:25)
DX: K59.01 Slow transit constipation (principal); K21.00 Gastro-esophageal reflux disease with esophagitis, without bleeding; Z87.891 Personal history of nicotine dependence; R13.19 Other dysphagia; R11.2 Nausea with vomiting, unspecified; K22.2 Esophageal obstruction
CPT/HCPCS: 43239; 43248; 88305; 88313; J7120; C1769; J2405

== ENCOUNTER → 2024-01-20 | Outpatient (CLI) | payer MEDICARE, SELFPAY ==
--- NOTE | 2024-01-20 12:30 | MRI_ITS ---
STUDY: MRI LEFT FOOT REASON FOR EXAM: Female, 73 years old. STRESS FX, TENDINITIS, OSTEOARTHRITIS TECHNIQUE: Standardized fat and water weighted pulse sequences were obtained in all 3 orthogonal planes. COMPARISON: None. FINDINGS: There is degenerative arthrosis at the first MTP joint with cystic changes in the first metatarsal head and a hallux valgus deformity. Normal bone marrow of the metatarsals, phalanges and visualized distal tarsal row, without fracture, periostitis, erosions or reactive bone edema. Normal sesamoids without sesamoiditis, fracture or avascular necrosis. Normal joint spaces, without effusions. Normal visualized Lisfranc joints and normal Lisfranc ligament. Normal intermetatarsal spaces without intermetatarsal ([place]) neuroma or bursitis. Normal visualized extensor digitorum longus, extensor hallucis longus, flexor digitorum brevis and flexor hallucis longus tendons. Normal visualized plantar fascia without fasciitis, fibromatosis or tear. There is mild atrophy of the intrinsic muscles of the foot. MRI/Lower Ext/No Jt/w/o IMPRESSION: Degenerative arthrosis at the first MTP joint with a hallux valgus deformity. Electronically Signed: Michael Fay MD at 11:04 EDT ,
--- NOTE | 2024-01-20 12:30 | MRI_ITS ---
STUDY: MRI LEFT ANKLE WITHOUT CONTRAST REASON FOR EXAM: Female, 73 years old. STRESS FX, TENDINITIS, OSTEOARTHRITIS TECHNIQUE: Standardized fat and water weighted pulse sequences were obtained in all 3 orthogonal planes. COMPARISON: None. FINDINGS: There is a type I accessory navicular. Normal posterior tibialis tendon. Normal flexor digitorum longus tendon. Normal flexor hallucis longus tendon. Normal peroneus longus and brevis tendons. Normal tibialis anterior tendon. Normal extensor hallucis longus tendon. Normal extensor digitorum longus tendons. Normal Achilles tendon and teno-osseous insertion. Normal plantar fascia. Normal plantar calcaneal tubercles. Normal intrinsic muscles of the rearfoot. Normal distal tibiofibular syndesmotic ligamentous complex. Normal lateral ligamentous complex. Normal subtalar ligaments and sinus tarsi. Normal deltoid ligamentous complexes. Normal plantar calcaneonavicular (spring) ligament. There is a 5 x 5 mm osteochondral lesion along the medial talar dome (sagittal STIR series 10 image 9; coronal T2 series 8 image 21). There is a tiny posterior subtalar joint effusion. Normal talonavicular articulation. Normal calcaneocuboid articulation. Normal navicular-cuneiform articulations. There is mild subcutaneous soft tissue edema along the medial and lateral aspects of the ankle. MRI/Lower Ext Joint Only (Routine) IMPRESSION: 5 x 5 mm osteochondral lesion along the medial talar dome. Tiny posterior subtalar joint effusion. Mild subcutaneous soft tissue edema along the medial and lateral aspects of the ankle. Electronically Signed: Michael Fay MD at 10:50 EDT ,
== END | disposition home or self-care (01) ==
PROVIDERS: PCP Family Medicine; Referring Provider Podiatrist; Visit Provider Podiatrist
DX: M19.072 Primary osteoarthritis, left ankle and foot (principal); M76.812 Anterior tibial syndrome, left leg
CPT/HCPCS: 73718; 73721

== ENCOUNTER → 2024-03-03 | Outpatient (CLI) | payer MEDICARE, SELFPAY ==
--- NOTE | 2024-03-03 08:35 | RAD_ITS ---
STUDY: X-RAY - ESOPHAGUS (BARIUM SWALLOW) WITH FLUOROSCOPY REASON FOR EXAM: Female, 73 years old. Dysphagia TECHNIQUE: 21 view(s) of the esophagus were obtained following swallowing of barium. FLUOROSCOPY TIME (if supplied): (28 seconds) minutes/seconds. 4.35 mGy. COMPARISON: None. FINDINGS: There is no demonstrated esophageal foreign body. There is no demonstrated stricture or mucosal abnormality. Normal gastroesophageal junction, without a demonstrated hiatal hernia. The patient ingested a 12 mm tablet of barium without any difficulty. Normal visualized aortic arch and descending thoracic aorta. Normal visualized pulmonary parenchyma. Normal visualized osseous structures of the thorax. RAD/Esophagus Dual Contrast IMPRESSION: Normal plain film x-ray examination (barium swallow) of the esophagus. Electronically Signed: Marco Rudd MD at 15:38 EDT ,
== END | disposition home or self-care (01) ==
LOC: RAD 08:25
PROVIDERS: PCP Family Medicine; Referring Provider Internal Medicine Gastroenterology; Visit Provider Internal Medicine Gastroenterology
DX: R13.10 Dysphagia, unspecified (principal)
CPT/HCPCS: 74221

== ENCOUNTER → 2024-03-09 | Outpatient (CLI) | payer MEDICARE, SELFPAY ==
[2024-03-09 11:27] LABS: ALB/GLOB Ratio 1.1 RATIO (0.9-2.4); AST(SGOT) 17 U/L (15-37); Alanine Aminotransfer ALT/SGPT 21 U/L (13-56); Albumin, Serum 3.3 g/dL (3.2-5.0); Alkaline Phosphatase 67 U/L (45-117); Anion Gap 1 (5-15); BUN 17 mg/dL (7-18); BUN/Creat Ratio 17.2 RATIO (10-20); Calcium,Total 9.1 mg/dL (8.5-10.1); Chloride 108 mmol/L (98-107); Creatinine, Serum 0.99 mg/dL (0.55-1.02); EST Glomerular Filtration Rate 58 mL/min (>60); Est Glom Filt Rate - Afr Amer 71 mL/min (>60); Globulin 3.1 g/dL (2.2-4.2); Glucose 83 mg/dL (74-106); Potassium 4.3 mmol/L (3.5-5.1); Protein, Total 6.4 g/dL (6.4-8.2); Sodium Level 140 mmol/L (136-145)
== END | disposition home or self-care (01) ==
LOC: LAB 10:34
PROVIDERS: PCP Family Medicine; Referring Provider Internal Medicine Gastroenterology; Visit Provider Internal Medicine Gastroenterology
DX: R19.8 Other specified symptoms and signs involving the digestive system and abdomen (principal)
CPT/HCPCS: 36415; 80053

== ENCOUNTER → 2024-04-17 | Outpatient (CLI) | payer MEDICARE, SELFPAY ==
--- NOTE | 2024-04-17 07:17 | US_ITS ---
STUDY: ABDOMINAL ULTRASOUND - RIGHT UPPER QUADRANT REASON FOR VISIT: Female, 73 years old abdomen pain, nausea, yellow stools TECHNIQUE: Ultrasound evaluation of the right upper quadrant was performed with real-time and static lorenzo-scale imaging. TECHNICAL QUALITY: Adequate. COMPARISON: None. FINDINGS: Liver: The liver measures 14.3 cm. There is diffusely increased echogenicity of the liver. The bile ducts are within normal limits. There is hepatic color flow. The direction of portal flow is hepatopetal. There is no demonstrated mass lesion. Gallbladder: Normal distended gallbladder. The gallbladder wall measures 1.5 mm. There is a negative sonographic Finn''s sign. There is no pericholecystic fluid. There are multiple gallstones. Common Bile Duct (C.B.D.): The common bile duct measures 5.8 mm. Pancreas: Normal size of the head, body and tail of the pancreas. There is normal echogenicity of the pancreas. There is no demonstrated pancreatic mass or cyst. Right Kidney: Normal size of the right kidney. The right kidney measures 9.7 x 3.6 cm. Normal renal cortex. The right cortex measures 1.1 cm. There is no demonstrated renal mass or cyst. There is no right hydronephrosis. US/Abdomen Limited IMPRESSION: Nonspecific fatty infiltrated liver. . Gallstones without evidence for acute cholecystitis Electronically Signed: Joel Plummer MD at 16:17 EDT ,
== END | disposition home or self-care (01) ==
LOC: US 07:16
PROVIDERS: PCP Family Medicine; Referring Provider Internal Medicine Gastroenterology; Visit Provider Internal Medicine Gastroenterology
DX: R11.0 Nausea (principal); R19.5 Other fecal abnormalities; R10.9 Unspecified abdominal pain
CPT/HCPCS: 76705

== ENCOUNTER → 2024-04-21 | Outpatient (CLI) | payer MEDICARE, SELFPAY ==
--- NOTE | 2024-04-21 09:43 | NM_ITS ---
CLINICAL: 73-year-old female with history of abdominal pain and nausea RADIONUCLIDE HEPATOBILIARY SCINTIGRAPHY COMPARISON: Abdominal ultrasound report 04/17/2024 FINDINGS: Following the intravenous administration of 5.5 mCi of 99m Tc Mebrofenin, hepatobiliary images reveal: 1. Relatively prompt and homogeneous radiopharmaceutical concentration is noted by a normal sized liver. No parenchymal defects are identified. 2. Gallbladder activity is identified at 45 minutes post radiopharmaceutical administration. 3. Small intestinal tract is observed at 30 minutes following tracer injection. 4. Washout of the radiopharmaceutical by the hepatic parenchyma appears qualitatively normal. Cholecystokinin (0.02 ug/kg) was administered intravenously over a 30-minute period. The post CCK gallbladder ejection fraction calculated at 20 minutes following Cholecystokinin administration was noted to be 24.0 % (normal greater than 35%). NM/Hepatobilliary Img w/Pharm Int IMPRESSION: 1. ABNORMAL 99m Tc Mebrofenin hepatobiliary imaging examination with Cholecystokinin. A. A gallbladder ejection fraction calculated to be less than 35% following the administration of Cholecystokinin is consistent with the presence of functional hepatobiliary disease (gallbladder and/or sphincter of Oddi dyskinesia) and/or organic hepatobiliary disease (chronic acalculous cholecystitis and/or cystic duct syndrome) in patients with intermediate to high pretest probabilities of hepatobiliary illness. (Niels Higgins et al, Journal of Nuclear Medicine 32:1695, 1991). Electronically Signed: Dillan Nair DO at 23:03 EDT ,
== END | disposition home or self-care (01) ==
LOC: NM 09:42
PROVIDERS: PCP Family Medicine; Referring Provider Internal Medicine Gastroenterology; Visit Provider Internal Medicine Gastroenterology
DX: R11.0 Nausea (principal); R10.9 Unspecified abdominal pain; R19.5 Other fecal abnormalities
CPT/HCPCS: 78227; A9537; J2805

== ENCOUNTER → 2024-04-29 | Outpatient (CLI) | payer MEDICARE, SELFPAY ==
[2024-04-29 13:48] LABS: AST(SGOT) 18 U/L (15-37); Alanine Aminotransfer ALT/SGPT 20 U/L (13-56); Albumin, Serum 3.3 g/dL (3.2-5.0); Alkaline Phosphatase 83 U/L (45-117); Bilirubin, Direct 0.09 mg/dL (0.00-0.30); Globulin 3.3 g/dL (2.2-4.2); Protein, Total 6.6 g/dL (6.4-8.2)
== END | disposition home or self-care (01) ==
LOC: LAB 12:03
PROVIDERS: PCP Family Medicine; Referring Provider Internal Medicine Gastroenterology; Visit Provider Internal Medicine Gastroenterology
DX: K76.0 Fatty (change of) liver, not elsewhere classified (principal); Z86.19 Personal history of other infectious and parasitic diseases; R11.2 Nausea with vomiting, unspecified
CPT/HCPCS: 36415; 80074; 80076

== ENCOUNTER → 2025-02-17 | Outpatient (CLI) | payer MEDICARE, SELFPAY ==
--- NOTE | 2025-02-17 10:56 | BD_ITS ---
PROCEDURE: DEXA BONE DENSITY STUDY 02/17/2025 REASON FOR EXAM: F, age 74 y/o . Postmenopausal. TECHNIQUE: DEXA scan of sites with data reported below. Scanner utilized: Xanic. REFERENCE LINKS: ISCD Adult Positions COMPARISON: None FINDINGS: BMD and T-SCORES Lumbar spine: 0.790 g/cm2, T-score -2.3 Levels: L1 through L4 Left femoral neck: 0.523 g/cm2, T-score -2.9 Left total hip: 0.636 g/cm2, T-score -2.5 Right femoral neck: 0.518 g/cm2, T-score -3.0 Right total hip: 0.628 g/cm2, T-score -2.6 The World Health Organization has defined the following categories based on bone density: Normal bone density: T-score equal to or greater than -1.0 Osteopenia: T-score between -1.0 and -2.5 Osteoporosis: T-score equal to or less than -2.5 FRAX (or Comparable) Fracture Risk Assessment: 10 Year Probability of Fracture: Major Osteoporotic Fracture: 29% Hip Fracture: 10% (Note: FRAX is not to be reported in setting of normal range bone density, osteoporosis on DEXA, known history of osteoporosis, prior osteoporotic hip or vertebral fracture, or for any patient undergoing pharmacological treatment for bone loss.) The National Osteoporosis Foundation (NOF) recommends pharmacological treatment for patients with a FRAX 10-year risk of 3% or higher for a hip fracture, or 20% or higher for a major osteoporotic fracture, to prevent osteoporosis and reduce fracture risk. The patient does meet the pharmacological treatment recommendations for prevention of osteoporosis. BD/Dexa Bone Density Study IMPRESSION: OSTEOPOROSIS. Recommend follow-up as clinically warranted. Reading Location: [id number]
== END | disposition home or self-care (01) ==
LOC: OPBD 10:50
PROVIDERS: PCP Internal Medicine; Referring Provider Orthopaedic Surgery; Visit Provider Orthopaedic Surgery
DX: Z87.39 Personal history of other diseases of the musculoskeletal system and connective tissue (principal); M81.0 Age-related osteoporosis without current pathological fracture
CPT/HCPCS: 77080

== ENCOUNTER → 2025-03-16 | Outpatient (CLI) | payer MEDICARE, SELFPAY ==
--- NOTE | 2025-03-16 15:31 | MRI_ITS ---
PROCEDURE: LOWER EXT/NO JT/W/O 03/16/2025 REASON FOR EXAM: INTERMETATARSAL NEUROMA, PAIN TECHNIQUE: MRI of the left forefoot, without contrast. T1, T2, stir, multiplanar and multisequence images were obtained without IV contrast administration. COMPARISON: COMPARISON : None FINDINGS: Bone Marrow: There is moderate to severe osteoarthritis of the 1st metatarsophalangeal articulation with subcortical cyst formation noted in the distal 1st metatarsal. There is a mild hallux valgus deformity. There is increased T2, decreased T1 circumscribed lesions in the distal aspect of the 2nd, 3rd, and 4th distal phalanx measuring 0.35, 0.35, and 0.3 cm, with the appearance of simple bone cysts. Effusion: There is a small effusion at the 1st and 2nd metatarsophalangeal articulations. There is mild fluid distention of the 1st intermetatarsal bursa. Soft Tissues: There is no visible neuroma. Flexor and extensor tendons appear intact. The sesamoids are aligned. There is diffuse plantar muscular atrophy. MRI/Lower Ext/No Jt/w/o IMPRESSION: There is moderate to severe osteoarthritis of the 1st metatarsophalangeal artic ulation with subcortical cyst formation noted in the distal 1st metatarsal. There is a mild hallux valgus deformity. There is increased T2, decreased T1 circumscribed lesions in the distal aspect of the 2nd, 3rd, and 4th distal phalanx measuring 0.35, 0.35, and 0.3 cm, with the appearance of simple bone cysts. There is a small effusion at the 1st and 2nd metatarsophalangeal articulations. There is mild fluid distention of the 1st intermetatarsal bursa. There is diffuse plantar muscular atrophy. Reading Location: [facility]
== END | disposition home or self-care (01) ==
LOC: MRI 14:47
PROVIDERS: PCP Internal Medicine; Referring Provider Podiatrist; Visit Provider Podiatrist
DX: M79.672 Pain in left foot (principal)
CPT/HCPCS: 73718

== ENCOUNTER → 2025-03-24 | Outpatient (CLI) | payer MEDICARE, SELFPAY ==
--- NOTE | 2025-03-24 08:36 | US_ITS ---
PROCEDURE: ABD LIMITED W/ ELASTOGRAPHY 03/24/2025 REASON FOR EXAM: FATTY LIVER TECHNIQUE: Right upper quadrant abdominal ultrasound along with shear wave elastography for non-invasive assessment of liver tissue stiffness. PATIENT PREPARATION: Per protocol COMPARISON: Hepatobiliary scan dated 04/21/2024. Ultrasound abdomen dated 04/17/2024. FINDINGS: LIVER: SIZE: Unremarkable LENGTH: 16.5 cm sagittally cm ECHOTEXTURE: Normal. CONTOUR: Normal LESIONS: None identified. Intrahepatic bile ducts are normal. BLOOD FLOW: Hepatopetal. ELASTOGRAPHY: EQI Med: 4.33 kPa EQI Med Gregory: 1.2 m/s GALLBLADDER: Hyper echogenic foci in the gallbladder lumen with posterior acoustic shadowing. COMMON BILE DUCT: 0.6 cm in diameter. . PANCREAS: Normal RIGHT KIDNEY: Size measures 10.5 x 5.4 x 3.7 cm. Cortex measures 1.2 cm. US/ABD Limited w/ Elastography IMPRESSION: 1. F0, normal elastography of the liver. Clinical likelihood of significant h epatic fibrosis is low. 2. Cholelithiasis. Reading Location: [place] [id number]
== END | disposition home or self-care (01) ==
LOC: US 08:34
PROVIDERS: PCP Internal Medicine; Referring Provider Internal Medicine Gastroenterology; Visit Provider Internal Medicine Gastroenterology
DX: K76.0 Fatty (change of) liver, not elsewhere classified (principal)
CPT/HCPCS: 76705; 76981

== ENCOUNTER → 2025-04-08 | Outpatient (CLI) | payer MEDICARE, SELFPAY ==
--- NOTE | 2025-04-08 12:40 | ART_ITS ---
Reason For Study Reason For Study: OTHER SPECIFIED PERIPHERAL DISEASES Procedure A bilateral lower extremity continuous wave Doppler with analog waveform analysis,segmental pressures,and ankle brachial indexes without exercise. Left Segmental Pressures Left brachial= 126mmHg. Left posterior tibial artery = 137mmHg. Left dorsalis pedis artery = 133mmHg. Left digit = 108 mmHg. The left posterior tibial artery waveforms are triphasic. The left dorsalis pedis waveforms are triphasic. Right Segmental Pressures Right brachial= 119mmHg. Right posterior tibial artery = 135mmHg. Right dorsalis pedis artery = 141mmHg. Right digit = 90 mmHg. The right posterior tibial artery waveforms are triphasic. The right dorsalis pedis waveforms are triphasic. Indices The right resting ankle brachial index is 1.12. The right ankle brachial index by the posterior tibial artery is 1.07. The right ankle brachial index by the dorsalis pedis is 1.12. The right digital- brachial index is 0.90. The left resting ankle brachial index is 1.09. The left ankle brachial index by the posterior tibial artery is 1.09. The left ankle brachial index by the dorsalis pedis is 1.06. The left digital-brachial index is 0.86. VL/Lower Ext Art Exam w/o Exercis Interpretation Summary Triphasic Doppler waveforms are noted at ankle level bilaterally. Pulse-volume recordings appear satisfactory at all levels bilaterally. Resting ankle-brachial indices are normal bilaterally. Digi mela-brachial indices are normal bilaterally. There is no evidence of significant arterial occlusive disease in the lower ext remities bilaterally. Ordering Physician: Joel Oliva Referring Physician: Jerri Mayorga Performed By: Minerva Mckee RVT, RDCS
== END | disposition home or self-care (01) ==
PROVIDERS: PCP Internal Medicine; Referring Provider Podiatrist; Visit Provider Podiatrist
DX: I73.89 Other specified peripheral vascular diseases (principal)
CPT/HCPCS: 93923

== ENCOUNTER 2025-05-05 09:55 | Day surgery (SDC) | payer MEDICARE, SELFPAY ==
--- NOTE | 2025-04-30 15:37 | PAT.ANESEVAL ---
Pre-Assessment Diagnosis/Proposed Procedure Planned Operative Procedure(s): Colonoscopy,EGD Anesthesia History Anesthesia History - first aid attendant: Anesthesia History - first aid attendant Hx Hospitalization No 04/30/25 14:44 Any Problems With Anesthesia No 04/30/25 14:44 Cholinesterase deficiency No 04/30/25 14:44 You/Your Family Experience No 04/30/25 14:44 fever (hyperthermia) with Relationship Recent Exposure to Contagious No 11/20/23 05:57 Disease Does patient have nerve No 04/30/25 14:44 stimulator Patient instructed to have device shut off --Does patient have Pacemaker or ICD? When Was Last Pacemaker Check QUESTION #4 FULL TEXT: You/Your Family Experience fever (hyperthermia) with Anesthesia Last Oral Intake Last Oral intake: Last Oral Intake NPO since Meds taken in AM with sips of water? Meds patient instructed to take am of surgery PONV PONV - first aid attendant: PONV - first aid attendant Female Yes 04/30/25 14:44 HX of Motion Sickness No 04/30/25 14:44 HX of N/V After Surgery No 04/30/25 14:44 Non-Smoker Yes 04/30/25 14:44 Duration of Surgery greater No 04/30/25 14:44 than 60 minutes Number of Risk Factors 2 04/30/25 14:44 PONV Score Moderate Risk 04/30/25 14:44 Height & Weight Height & Weight: Anesthesia: Height & Weight Height 5 ft 7.5 in 11/20/24 13:21 Respiratory Assessment Respiratory Assessment - first aid attendant: Respiratory Tract Infection Hx - first aid attendant Hx Respiratory Tract Infection No 04/30/25 14:44 STOP Sleep Apnea STOP Sleep Apnea - first aid attendant: STOP Sleep Apnea - first aid attendant Hx Hypertension No 04/30/25 14:44 Hx Sleep Apnea No 04/30/25 14:44 CPAP BIPAP Do you snore loudly (louder No 04/30/25 14:44 than talking or can be heard Do you often feel tired/ No 04/30/25 14:44 fatigued/ sleepy during daytime? Has anyone observed you stop No 04/30/25 14:44 breathing during sleep? STOP Results Negative 04/30/25 14:44 QUESTION #5 FULL TEXT : Do you snore loudly (louder than talking or can be heard through closed doors)? Tobacco Use History Tobacco Use History - first aid attendant: Tobacco Use History - first aid attendant Tobacco Use Smoking Status Former smoker 04/30/25 14:44 Hx Tobacco Use No 04/30/25 14:44 Years Smoking Packs Smoked per Day Smoking Cessation Date was No - quit smoking greater 04/30/25 14:44 within the last 15 years than 15 years ago Hx Smoking Cessation Date 10/21/99 04/30/25 14:44 Hx Smoking Cessation No 04/30/25 14:44 Counseling Hematologic Medial History Hematologic Hx - first aid attendant: Hematologic Medical Hx - commercial agent Hx of Blood Transfusion No 04/30/25 14:44 Hx of Transfusion in last 3 No 04/30/25 14:44 Months Date of Last Transfusion (if within last 3 months) Ever experience any problems No 04/30/25 14:44 with transfusion(s)? Specify any problems Hx of Preganancy in last 3 No 04/30/25 14:44 Months Nurse Filling Out Transfusion JZOLLINGE 04/30/25 14:44 & Questions: Date: 04/30/25 04/30/25 14:44 Time: 14:46 04/30/25 14:44 Patient unable to answer at this time (ie. confused, unrespo /Reproduction History /Reproductive History - first aid attendant: /Reproductive Hx- first aid attendant Hx Now No 04/30/25 14:44 Gestational Age (in weeks): EDC: Hx Hx Para Hx Section SAB No 04/30/25 14:44 PFSH Medical History (Updated 04/30/25 @ 14:44 by Olivia Olivier) Segmental dystonia POTS (postural orthostatic tachycardia syndrome) Kwan-Danlos syndrome Alcohol use Arthritis CLL (chronic lymphocytic leukemia) High cholesterol History of hiatal hernia Gastric reflux History of Holter monitoring History of echocardiogram Cardiology follow-up encounter Neuropathy Hiatal hernia Vitamin D deficiency Viral hepatitis A without mention of hepatic coma Tubular adenoma of colon Palpitations Osteoporosis Malignant neoplasm of right upper lobe of lung Inflammatory bowel disease Mixed hyperlipidemia Fibromyalgia Degenerative disc disease, cervical COPD with emphysema Colon polyp Cervicalgia Cervical dystonia Adenocarcinoma Acquired torsion dystonia Hypothyroidism Nausea & vomiting Change in bowel habits Dystonia Wears glasses Post-menopausal Bruising Thyroid disease Bladder disease Low iron Hepatitis History of leukemia Difficulty swallowing Difficulty chewing Heartburn Former smoker Shortness of breath on exertion Home Medications ?Medication ?Instructions ?Recorded ?Last Taken ?Type clonazepam 0.5 mg tablet 0.5 mg PO BID 05/26/21 11/20/23 History ascorbic acid (vitamin C) 500 mg 500 mg PO DAILY 11/29/22 Unknown History capsule biotin 800 mcg tablet 800 mcg PO DAILY 11/29/22 Unknown History cholecalciferol (vitamin D3) 50 50 mcg PO DAILY 11/29/22 Unknown History mcg (2,000 unit) capsule levothyroxine 112 mcg tablet 112 mcg PO DAILY 12/06/22 11/20/23 History (Synthroid) calcium citrate 1,000 mg tablet 1,000 mg PO DAILY 12/07/22 Unknown History trazodone 150 mg tablet 150 mg PO QHS Sleep 12/07/22 Unknown History magnesium citrate,mag oxide 250 mg 250 mg PO BID 08/21/24 Unknown History capsule Allergy/AdvReac Type Severity Reaction Status Date / Time cephalexin Allergy Itching Verified 04/30/25 14:33 ciprofloxacin (From Cipro) Allergy Rash Verified 04/30/25 14:33 Sulfa (Sulfonamide Allergy Rash Verified 04/30/25 14:33 Antibiotics) metoclopramide (From Reglan) AdvReac Other Verified 04/30/25 14:33 Family History Mother Cancer Lung Ulcerative colitis Grandmother CAD (coronary artery disease) Angina Father Crohn's disease Brother Cancer Lung Daughter Crohn's disease Surgical History History of bilateral cataract extraction History of myomectomy History of dilatation and curettage History of colonoscopy History of esophagogastroduodenoscopy (EGD) S/P partial lobectomy of lung History of hysteroscopy Social History Smoking Status: Former smoker Tobacco: How many years used: 16 how long ago did patient quit smokin alcohol intake: former substance use type: does not use caffeine: Yes Type: coffee Number of servings: 1 Audit: Pertinent Findings Pertinent Findings EKG Perinent findings: 11/20/2022. Sinus rhythm with occasional PVCs. 82 bpm. Echo (EF%) pertinent findings: 01/18/2023. Normal size function EF 60%. Consult pertinent findings: Cardiology 12/07/2022. Palpitations. Noted had recommended 48-hour Holter which is not available currently. But did obtain an echo which was suggested. Suspicion was PVCs. Recommendation Anesthesia Recommendation Anesthesia recommendation: OPTIMIZED for anesthesia
--- NOTE | 2025-04-30 15:37 | PAT.ANESEVAL ---
Pre-Assessment Diagnosis/Proposed Procedure Planned Operative Procedure(s): Colonoscopy,EGD Anesthesia History Anesthesia History - tinsmith helper: Anesthesia History - tinsmith helper Hx Hospitalization No 04/30/25 14:44 Any Problems With Anesthesia No 04/30/25 14:44 Cholinesterase deficiency No 04/30/25 14:44 You/Your Family Experience No 04/30/25 14:44 fever (hyperthermia) with Relationship Recent Exposure to Contagious No 11/20/23 05:57 Disease Does patient have nerve No 04/30/25 14:44 stimulator Patient instructed to have device shut off --Does patient have Pacemaker or ICD? When Was Last Pacemaker Check QUESTION #4 FULL TEXT: You/Your Family Experience fever (hyperthermia) with Anesthesia Last Oral Intake Last Oral intake: Last Oral Intake NPO since Meds taken in AM with sips of water? Meds patient instructed to take am of surgery PONV PONV - tinsmith helper: PONV - tinsmith helper Female Yes 04/30/25 14:44 HX of Motion Sickness No 04/30/25 14:44 HX of N/V After Surgery No 04/30/25 14:44 Non-Smoker Yes 04/30/25 14:44 Duration of Surgery greater No 04/30/25 14:44 than 60 minutes Number of Risk Factors 2 04/30/25 14:44 PONV Score Moderate Risk 04/30/25 14:44 Height & Weight Height & Weight: Anesthesia: Height & Weight Height 5 ft 7.5 in 11/20/24 13:21 Respiratory Assessment Respiratory Assessment - tinsmith helper: Respiratory Tract Infection Hx - tinsmith helper Hx Respiratory Tract Infection No 04/30/25 14:44 STOP Sleep Apnea STOP Sleep Apnea - tinsmith helper: STOP Sleep Apnea - tinsmith helper Hx Hypertension No 04/30/25 14:44 Hx Sleep Apnea No 04/30/25 14:44 CPAP BIPAP Do you snore loudly (louder No 04/30/25 14:44 than talking or can be heard Do you often feel tired/ No 04/30/25 14:44 fatigued/ sleepy during daytime? Has anyone observed you stop No 04/30/25 14:44 breathing during sleep? STOP Results Negative 04/30/25 14:44 QUESTION #5 FULL TEXT : Do you snore loudly (louder than talking or can be heard through closed doors)? Tobacco Use History Tobacco Use History - tinsmith helper: Tobacco Use History - tinsmith helper Tobacco Use Smoking Status Former smoker 04/30/25 14:44 Hx Tobacco Use No 04/30/25 14:44 Years Smoking Packs Smoked per Day Smoking Cessation Date was No - quit smoking greater 04/30/25 14:44 within the last 15 years than 15 years ago Hx Smoking Cessation Date 10/21/99 04/30/25 14:44 Hx Smoking Cessation No 04/30/25 14:44 Counseling Hematologic Medial History Hematologic Hx - tinsmith helper: Hematologic Medical Hx - smt operator Hx of Blood Transfusion No 04/30/25 14:44 Hx of Transfusion in last 3 No 04/30/25 14:44 Months Date of Last Transfusion (if within last 3 months) Ever experience any problems No 04/30/25 14:44 with transfusion(s)? Specify any problems Hx of Preganancy in last 3 No 04/30/25 14:44 Months Nurse Filling Out Transfusion JZOLLINGE 04/30/25 14:44 & Questions: Date: 04/30/25 04/30/25 14:44 Time: 14:46 04/30/25 14:44 Patient unable to answer at this time (ie. confused, unrespo /Reproduction History /Reproductive History - tinsmith helper: /Reproductive Hx- tinsmith helper Hx Now No 04/30/25 14:44 Gestational Age (in weeks): EDC: Hx Hx Para Hx Section SAB No 04/30/25 14:44 PFSH Medical History (Updated 04/30/25 @ 14:44 by Olivia Olivier) Segmental dystonia POTS (postural orthostatic tachycardia syndrome) Kwan-Danlos syndrome Alcohol use Arthritis CLL (chronic lymphocytic leukemia) High cholesterol History of hiatal hernia Gastric reflux History of Holter monitoring History of echocardiogram Cardiology follow-up encounter Neuropathy Hiatal hernia Vitamin D deficiency Viral hepatitis A without mention of hepatic coma Tubular adenoma of colon Palpitations Osteoporosis Malignant neoplasm of right upper lobe of lung Inflammatory bowel disease Mixed hyperlipidemia Fibromyalgia Degenerative disc disease, cervical COPD with emphysema Colon polyp Cervicalgia Cervical dystonia Adenocarcinoma Acquired torsion dystonia Hypothyroidism Nausea & vomiting Change in bowel habits Dystonia Wears glasses Post-menopausal Bruising Thyroid disease Bladder disease Low iron Hepatitis History of leukemia Difficulty swallowing Difficulty chewing Heartburn Former smoker Shortness of breath on exertion Home Medications ?Medication ?Instructions ?Recorded ?Last Taken ?Type clonazepam 0.5 mg tablet 0.5 mg PO BID 05/26/21 11/20/23 History ascorbic acid (vitamin C) 500 mg 500 mg PO DAILY 11/29/22 Unknown History capsule biotin 800 mcg tablet 800 mcg PO DAILY 11/29/22 Unknown History cholecalciferol (vitamin D3) 50 50 mcg PO DAILY 11/29/22 Unknown History mcg (2,000 unit) capsule levothyroxine 112 mcg tablet 112 mcg PO DAILY 12/06/22 11/20/23 History (Synthroid) calcium citrate 1,000 mg tablet 1,000 mg PO DAILY 12/07/22 Unknown History trazodone 150 mg tablet 150 mg PO QHS Sleep 12/07/22 Unknown History magnesium citrate,mag oxide 250 mg 250 mg PO BID 08/21/24 Unknown History capsule Allergy/AdvReac Type Severity Reaction Status Date / Time cephalexin Allergy Itching Verified 04/30/25 14:33 ciprofloxacin (From Cipro) Allergy Rash Verified 04/30/25 14:33 Sulfa (Sulfonamide Allergy Rash Verified 04/30/25 14:33 Antibiotics) metoclopramide (From Reglan) AdvReac Other Verified 04/30/25 14:33 Family History Mother Cancer Lung Ulcerative colitis Grandmother CAD (coronary artery disease) Angina Father Crohn's disease Brother Cancer Lung Daughter Crohn's disease Surgical History History of bilateral cataract extraction History of myomectomy History of dilatation and curettage History of colonoscopy History of esophagogastroduodenoscopy (EGD) S/P partial lobectomy of lung History of hysteroscopy Social History Smoking Status: Former smoker Tobacco: How many years used: 16 how long ago did patient quit smokin alcohol intake: former substance use type: does not use caffeine: Yes Type: coffee Number of servings: 1 Audit: Pertinent Findings Pertinent Findings EKG Perinent findings: 11/20/2022. Sinus rhythm with occasional PVCs. 82 bpm. Echo (EF%) pertinent findings: 01/18/2023. Normal size function EF 60%. Consult pertinent findings: Cardiology 12/07/2022. Palpitations. Noted had recommended 48-hour Holter which is not available currently. But did obtain an echo which was suggested. Suspicion was PVCs. Recommendation Anesthesia Recommendation Anesthesia recommendation: OPTIMIZED for anesthesia
[2025-05-05] VITALS (8 sets, daily range): BP systolic 89–123; BP diastolic 62–90; PULSE 67–74; RESP 16; TEMP 36.2–36.3; O2SAT 97–100; BMI 23.8
[2025-05-05] MEDS: Lactated Ringers 1,000 ML 15 ML IV (10:37)
--- NOTE | 2025-05-05 10:56 | PCM.HP.STD ---
HPI - General General Date of Admission: 05/05/25 Date of Service: 05/05/25 HPI Narrative ELMER MITCHELL, is a 74 F who presentsELMER MITCHELL, is a 74 F who presents to the office today for follow up. PMH CLL does not require treatment at this time; Dystonia; hypothyroid. ?FH father and daughter, Crohn?s disease. Mother colitis.? ? EGD and colonoscopy 05.29.[address] Faustin [facility] for lower abdominal pain and change in bowel habits. EGD found gastritis, biopsy proven. H.Pylori negative.? Colonoscopy without abnormalities found. Biopsy without pathologic changes.? ? *BGI Established 05.25.22. Postprandial, evening, heartburn with bloating and abdominal pain relieved by emesis; occurs once every 3-4 weeks. ? Historical constipation with no bowel movement with need to evacuate and requires manual disimpaction. She is taking fiber and two magnesium a day for constipation. ? Currently having postprandial urgent soft stools with narrow caliber or normal caliber or a light brown/reddish color without oil/floating/mucous/blood. Reports she has IBS. ? Biochemical workup ?H.Pylori Ig (not drawn), CRP, LDH, ESR, ANCA, celiac, GAME, vit B12, ENDER comp, KATHY, CMP without pertinent abnormalities.? WBC H33.4? Stool testing H.Pylori, calprotectin, lactoferrin WNL.? EGD 06.20.22?noting tortuous esophagus with inflammation; moderate Schatzki ring, Savary Dilator 54F; medium hiatal hernia; erythematous antrum, gastritis. H.Pylori negative.? OV 10.21.22 N/V ? improved following EGD. Bowel habit change ? since stopping PPI stools have been more consistent. ? OV 2.14.23 N/V and heartburn have begun returning in the last month with mild progression of frequency and severity. ? OV 5.24.23 has not started famotidine as she has not experienced reflux symptoms requiring attention. Feels she continues to have dysphagia with meats, feels as though it gets caught. Constipation with PRN use of stool softeners once every several weeks. Feels that prior to bed she has tenesmus requiring manual disimpaction; spontaneous movement each morning unless constipated. ?SITZ ?one R colon, six RS colon, seven total. Day 2, no remaining rings.? ? OV 10.13.23 Pt reports she is still having issues with constipation. Some relief with OTC stool softeners. Increased heartburn and dysphagia. Is thinking she needs another scope. We previously prescribed her Famotidine but she says she threw it away on accident. Has been taking tums. EGD 11.20.23 LA Grade B reflux esophagitis with no bleeding. Biopsied. Moderate Schatzki ring. Dilated. Abnormal esophageal motility, suspicious for presbyesophagus. A medium amount of food (residue) in the stomach. The examination was otherwise normal. Retained food in the duodenum. Barium Swallow X-Ray 03.03.24 normal Contact 03.04.24 Pt reported that she is having yellowish brown stools and is concerned about her liver. Pt reports a history of hepatitis. Pt reports that the yellow stools began after her EGD 11.20.23. Reports one soft BM per day. Pt states that her diet consists of veggies, fruits, grains, nuts, fish, and chicken. abd US 6.28.24 Nonspecific fatty infiltrated liver Gallstones without evidence for acute cholecystitis HIDA 7.2.24 EF 24% OV 7.15.24 pt reports a formed bm about an hour after every meal, pt reports that bm appear mustard colored and greasy; denies blood in stool. Pt reports that she feels more pressure lately; endorses that she has a prolapse. Pt reports that she was newly diagnosed with EDS Kwan-Danlos Syndrome. OV 11.1.24 Pt reports that she is feeling well overall and denies GI symptoms of concern at this time. Pt reports daily, formed bm with the use of colace. OV 5.5.25 pt reports that she is feeling well, has been having increased discomfort from her rectal prolapse. Pt continues with Colace as needed and stated that this is effective for her. ON LICENSE OF [facility] Medical History Segmental dystonia POTS (postural orthostatic tachycardia syndrome) Kwan-Danlos syndrome Alcohol use Arthritis CLL (chronic lymphocytic leukemia) High cholesterol History of hiatal hernia Gastric reflux History of Holter monitoring History of echocardiogram Cardiology follow-up encounter Neuropathy Hiatal hernia Vitamin D deficiency Viral hepatitis A without mention of hepatic coma Tubular adenoma of colon Palpitations Osteoporosis Malignant neoplasm of right upper lobe of lung Inflammatory bowel disease Mixed hyperlipidemia Fibromyalgia Degenerative disc disease, cervical COPD with emphysema Colon polyp Cervicalgia Cervical dystonia Adenocarcinoma Acquired torsion dystonia Hypothyroidism Nausea & vomiting Change in bowel habits Dystonia Wears glasses Post-menopausal Bruising Thyroid disease Bladder disease Low iron Hepatitis History of leukemia Difficulty swallowing Difficulty chewing Heartburn Former smoker Shortness of breath on exertion Home Medications ?Medication ?Instructions ?Recorded ?Last Taken ?Type clonazepam 0.5 mg tablet 0.5 mg PO BID 05/26/21 05/05/25 07:00 History ascorbic acid (vitamin C) 500 mg 500 mg PO DAILY 11/29/22 Unknown History capsule biotin 800 mcg tablet 800 mcg PO DAILY 11/29/22 Unknown History cholecalciferol (vitamin D3) 50 50 mcg PO DAILY 11/29/22 Unknown History mcg (2,000 unit) capsule levothyroxine 112 mcg tablet 112 mcg PO DAILY 12/06/22 05/05/25 History (Synthroid) calcium citrate 1,000 mg tablet 1,000 mg PO DAILY 12/07/22 Unknown History trazodone 150 mg tablet 150 mg PO QHS Sleep 12/07/22 05/04/25 History magnesium citrate,mag oxide 250 mg 250 mg PO BID 08/21/24 Unknown History capsule Allergy/AdvReac Type Severity Reaction Status Date / Time cephalexin Allergy Itching Verified 05/05/25 10:24 ciprofloxacin (From Cipro) Allergy Rash Verified 05/05/25 10:24 Sulfa (Sulfonamide Allergy Rash Verified 05/05/25 10:24 Antibiotics) metoclopramide (From Reglan) AdvReac Other Verified 05/05/25 10:24 Family History Mother Cancer Lung Ulcerative colitis Grandmother CAD (coronary artery disease) Angina Father Crohn's disease Brother Cancer Lung Daughter Crohn's disease Surgical History History of bilateral cataract extraction History of myomectomy History of dilatation and curettage History of colonoscopy History of esophagogastroduodenoscopy (EGD) S/P partial lobectomy of lung History of hysteroscopy Social History Smoking Status: Former smoker Tobacco: How many years used: 16 how long ago did patient quit smokin alcohol intake: former substance use type: does not use caffeine: Yes Type: coffee Number of servings: 1 ROS Constitutional Constitutional: Denies fatigue, fever(s), poor appetite, weight gain or weight loss Gastrointestinal Gastrointestinal: Denies belching, bloating, change in bowel habits, change in stool character, chewing difficulty, coffee ground emesis, constipation, cramping, diarrhea, dyspepsia, dysphagia, early satiety, excessive flatus, fecal incontinence, heartburn, hematemesis, hematochezia, hemorrhoids, loose stools, melena, nausea, odynophagia, rectal bleeding, tenesmus, vomiting or weight changes Vital Signs Vital Signs Vital Signs: 05/05/25 10:25 05/05/25 10:25 Temperature 97.4 F L Temperature Source Oral Pulse Rate 74 Respiratory Rate 16 Respiratory Pattern Normal Blood Pressure 123/90 H Blood Pressure Mean 101 Blood Pressure Source Monitor Blood Pressure Position Semi-Fowlers Blood Pressure Location Left Arm Pulse Ox 99 Oxygen Delivery Method Room Air Weight Weight: 152 lb 1.903 oz Body Mass Index (BMI) 23.8 Assessment & Plan Assessment/Plan (1) Biliary dyskinesia: (2) Change in bowel movement: (3) Segmental dystonia: (4) SOB (shortness of breath): (5) Difficulty swallowing: QUALIFIERS: Dysphagia type: esophageal phase Qualified Code(s): R13.19 - Other dysphagia PLAN: Assessment and Plan Assessment and Plan (1) Difficulty swallowing: Status: Chronic Qualifiers: Dysphagia type: esophageal phase Qualified Code(s): R13.19 - Other dysphagia Plan: She is status post dilation esophageal ring, better regarding swallowing except for meat on occasion. It is not something that bothers her on a daily basis. Order barium esophagram to evaluate how she is doing with her new diet and weight loss affect her swallowing. She was recently discovered to have Kwan-Danlos syndrome. She does suffer some effects of Kwan-Danlos and dystonia. But she is very well-controlled. (2) Constipation: Status: Chronic Qualifiers: Constipation type: slow transit constipation Qualified Code(s): K59.01 - Slow transit constipation Plan: She will get a Sitz Marker test. She has pelvic floor dysfunction. States that she does have to manually disimpact suspect that she does a pelvic floor dysfunction. We discussed the possibility of anorectal manometry. Since there has been ordered to see if there is an issue regarding her pelvic floor. She has not tried any osmotic laxatives. She has tried stool softeners but she still has to manually disimpact every night. She has not had any trauma to her pelvis. She has a possibility of bladder prolapse. She has not been diagnosed with rectocele or ureterocele. She has not had episodes of incontinence of bowel or bladder at this time. We will start aloe Vera juice and increase her magnesium citrate to 800mg to 1000mg / day (3) Nausea & vomiting: Status: Inactive Qualifiers: Vomiting type: unspecified Qualified Code(s): R11.2 - Nausea with vomiting, unspecified Plan: Nausea is a little bit worse. She was seen in the ER for some chest pain that was thought to be secondary to anxiety. However she does have a hiatal hernia did have esophagitis that was seen on upper endoscopy that caused esophageal stricture that needed to be evaluated. I suspect that her symptoms are from gastroesophageal reflux disease and possibly some underlying gastroparesis due to other medicines that she takes on a daily basis. I will give her famotidine 20mg BID. She will take that in the morning away from her thyroid medicine which she takes at night and she will follow-up approximately 4 months. (4) Right lower quadrant abdominal pain: Status: Acute Plan: Because of the large abdominal pain we obtained a ultrasound of the right upper quadrant and it did show defects in the gallbladder consistent with cholelithiasis. The HIDA scan ejection fraction is 24%. Refer for evaluation of her gallbladder and possible removal. (5) Biliary dyskinesia: Status: Acute Comment: Patient is a 73-year-old female with a number of unusual comorbidities?including recent diagnosis of Kwan-Danlos syndrome-who presents on referral from gastroenterology for consideration of cholecystectomy after technically meeting criteria for biliary dyskinesia with recent HIDA scan. In a careful review of her history I gather that Mrs. Mitchell is primarily concerned about her altered bowel habits and describes only mild, occasional abdominal discomfort and postprandial phase. Moreover, her abdominal exam is completely benign today. I discussed with her?through the use of hand drawings?the diagnosis and the relevant anatomy. I shared with her that this is not a universally-excepted diagnosis worldwide and that while the management is defined as cholecystectomy?that there is no way of necessarily prognosticating patient's relief of symptoms postoperatively. Taking all things into consideration, I do find it notable that patient did not have any discomfort with her CCK administration. Seen this is somewhat predictive for patient's benefit of cholecystectomy and considering the minimal symptoms that she has against the backdrop of the complex past medical history I do not believe the risk of cholecystectomy with is warranted. This impression was given frankly to Mrs. Mitchell and she expresses her appreciation. I do recommend consideration of workup for possible malabsorptive state and have tried to encourage her to seek outside assistance for pelvic floor training. Patient notes that she is due to meet with Dr. Weaver of urology in the coming days and we have encouraged her to raise these concerns at that consultation visit. (6) Fatty liver: Status: Acute Plan: We discussed different things regarding her fatty liver disease. She only has mild fatty liver disease at this time. She is an F1 with a score of 6.7. I only recommended vitamin E 400 units a day she is already drinking coffee. I do not think she needs any medicine at this time. Repeat ultrasound with elastography in approximately 6 months.
--- NOTE | 2025-05-05 11:00 | COLBX_PTH ---
PATIENT: ELMER TSE LOC: EN U#:[id number] AGE/SX: 74/F ROOM: RE05/05/[address]: Dr. Joseph De La Cruz DO : 1950 BED: DIS: 05/05/2025 SPEC #: [id number] RECD: 05/05/25 13:44 STATUS: SINAI GHADA #: [id number] CARMELO: 05/05/25 11:[address]: Joseph De La Cruz DEPT: SURGICAL PATHOLOGY RECD BY: Jimmie Meneses ENTERED: 05/05/25 14:33 SP TYPE: COLON BX OTHR DR: Dr. Jerri Mayorga MD Tissues: A - Esophagus, NOS B - COLON BIOPSY C - Ascending colon Procedures: Surgery Specimen Level IV HEADER OPERATION: Colonoscopy with biopsy of polyp, polypectomy with hot snare PRE-OP DIAGNOSIS: Biliary dyskinesia, change in bowel movement, segmental dystonia, shortness of breath, difficulty swallowing TISSUE SUBMITTED: A- Distal esophagus biopsy, B- Hepatic flexure polyp, C- Ascending colon polyp MICROSCOPIC DIAGNOSIS A. Distal esophagus, biopsy: - Squamous and columnar mucosa with reactive changes. - Negative for goblet cell metaplasia. - Negative for dysplasia. B. Colon, hepatic flexure, polyp, biopsy: - Tubular adenoma. C. Ascending colon, polyp, biopsy: - Tubulovillous adenoma, multiple fragments - see note. Note: The tissue is markedly distorted with cautery artifact. MICROSCOPIC DESCRIPTION Slides are reviewed. GROSS DESCRIPTION A. Received in fixative is one container labeled with the patient's name and designated Distal esophagus biopsy. The specimen consists of multiple irregular fragments of light joshi soft tissue that in aggregate measure 0.2 to 0.9 cm. The specimen is totally submitted in one cassette. B. Received in fixative is one container labeled with the patient's name and designated Hepatic flexure polyp. The specimen consists of one irregular fragment of light joshi soft tissue that measures 0.5 cm. The specimen is totally submitted in one cassette. C. Received in fixative is one container labeled with the patient's name and designated Ascending colon polyp. The specimen consists of multiple irregular fragments of light joshi soft tissue that in aggregate measure 0.1 to 0.3 cm. The specimen is totally submitted in one cassette. WYJosafat 05/05/2025 CPT:09442k2
--- NOTE | 2025-05-05 11:00 | COLBX_PTH ---
PATIENT: ELMER TES LOC: EN U#:[id number] AGE/SX: 74/F ROOM: RE05/05/[address]: Dr. Joseph De La Cruz DO : 1950 BED: DIS: 05/05/2025 SPEC #: [id number] RECD: 05/05/25 13:44 STATUS: SINAI GHADA #: [id number] CARMELO: 05/05/25 11:[address]: Joseph De La Cruz DEPT: SURGICAL PATHOLOGY RECD BY: Jimmie Meneses ENTERED: 05/05/25 14:33 SP TYPE: COLON BX OTHR DR: Dr. Jerri Mayorga MD Tissues: A - Esophagus, NOS B - COLON BIOPSY C - Ascending colon Procedures: Surgery Specimen Level IV HEADER OPERATION: Colonoscopy with biopsy of polyp, polypectomy with hot snare PRE-OP DIAGNOSIS: Biliary dyskinesia, change in bowel movement, segmental dystonia, shortness of breath, difficulty swallowing TISSUE SUBMITTED: A- Distal esophagus biopsy, B- Hepatic flexure polyp, C- Ascending colon polyp MICROSCOPIC DIAGNOSIS A. Distal esophagus, biopsy: - Squamous and columnar mucosa with reactive changes. - Negative for goblet cell metaplasia. - Negative for dysplasia. B. Colon, hepatic flexure, polyp, biopsy: - Tubular adenoma. C. Ascending colon, polyp, biopsy: - Tubulovillous adenoma, multiple fragments - see note. Note: The tissue is markedly distorted with cautery artifact. MICROSCOPIC DESCRIPTION Slides are reviewed. GROSS DESCRIPTION A. Received in fixative is one container labeled with the patient's name and designated Distal esophagus biopsy. The specimen consists of multiple irregular fragments of light joshi soft tissue that in aggregate measure 0.2 to 0.9 cm. The specimen is totally submitted in one cassette. B. Received in fixative is one container labeled with the patient's name and designated Hepatic flexure polyp. The specimen consists of one irregular fragment of light joshi soft tissue that measures 0.5 cm. The specimen is totally submitted in one cassette. C. Received in fixative is one container labeled with the patient's name and designated Ascending colon polyp. The specimen consists of multiple irregular fragments of light joshi soft tissue that in aggregate measure 0.1 to 0.3 cm. The specimen is totally submitted in one cassette. TXJosafat 05/05/2025 CPT:72761h3
--- NOTE | 2025-05-05 11:34 | PCM.PRE.AN2 ---
ASA Classification* ASA Classification ASA Classification: 3 Assessment & Plan Anesthesia* Anesthesia Assessment Anesthesia Assessment: Discussed sedation and/or anesthesia options, risks, benefits, and alternatives with patient/parents/legal guardian/POA. Questions invited. The patient/parents/legal guardian/POA seems to understand and agrees to proceed with anesthesia plan. Reviewed the physical assessment, medical history, allergy history and patient home medications list prior to surgery/procedure/anesthetic and documented any changes. Performed airway and anesthesia risk assessments. Anesthesia Type Anesthesia Type: MAC History Source History Obtained from:: Patient and Chart Anesthesia Focused Assessment* Temperature: 97.4 F Pulse Rate: 74 Blood Pressure: 123/90 Respiratory Rate: 16 Pulse Ox: 99 Oxygen Delivery Method: Room Air Airway Assessment Mouth opens: >3 cm Mallampati Score: II Teeth Condition: Missing Labs Anesthesia Preop lab: CBC WBC 33.0 K/mm3 (4.4-11.0) H* 11/20/22 15:45 11/20/22 RBC 4.38 M/mm3 (4.2-5.4) 11/20/22 15:45 11/20/22 Hgb 13.4 g/dL (12.0-15.0) 11/20/22 15:45 11/20/22 Hct 42.4 % (37-47) 11/20/22 15:45 11/20/22 Plt Count 237 K/mm3 (150-450) 11/20/22 15:45 11/20/22 CHEMISTRY Potassium 4.3 mmol/L (3.5-5.1) 03/09/24 10:36 03/09/24 Sodium 140 mmol/L (136-145) 03/09/24 10:36 03/09/24 BUN 17 mg/dL (7-18) 03/09/24 10:36 03/09/24 Creatinine 0.99 mg/dL (0.55-1.02) 03/09/24 10:36 03/09/24 Glucose 83 mg/dL (74-106) 03/09/24 10:36 03/09/24 TSH 0.53 uIU/mL (0.358-3.74) 11/20/22 15:45 11/20/22 COAG Pre-Assessment Diagnosis/Proposed Procedure Planned Operative Procedure(s): Colonoscopy,EGD Anesthesia History Anesthesia History - supervisory cbp officer: Anesthesia History - supervisory cbp officer Hx Hospitalization No 04/30/25 14:44 Any Problems With Anesthesia No 04/30/25 14:44 Cholinesterase deficiency No 04/30/25 14:44 You/Your Family Experience No 04/30/25 14:44 fever (hyperthermia) with Relationship Recent Exposure to Contagious No 05/05/25 10:25 Disease Does patient have nerve No 04/30/25 14:44 stimulator Patient instructed to have device shut off --Does patient have Pacemaker or ICD? When Was Last Pacemaker Check QUESTION #4 FULL TEXT: You/Your Family Experience fever (hyperthermia) with Anesthesia Last Oral Intake Last Oral intake: Last Oral Intake NPO since 05:30 05/05/25 10:25 Meds taken in AM with sips of water? Meds patient instructed to take am of surgery PONV PONV - supervisory cbp officer: PONV - supervisory cbp officer Female Yes 04/30/25 14:44 HX of Motion Sickness No 04/30/25 14:44 HX of N/V After Surgery No 04/30/25 14:44 Non-Smoker Yes 04/30/25 14:44 Duration of Surgery greater No 04/30/25 14:44 than 60 minutes Number of Risk Factors 2 04/30/25 14:44 PONV Score Moderate Risk 04/30/25 14:44 Height & Weight Height & Weight: Anesthesia: Height & Weight Height 5 ft 7 in 05/05/25 10:25 Weight: 69 kg 05/05/25 10:25 Body Mass Index (BMI) 23.8 05/05/25 10:25 Respiratory Assessment Respiratory Assessment - supervisory cbp officer: Respiratory Tract Infection Hx - supervisory cbp officer Hx Respiratory Tract Infection No 04/30/25 14:44 STOP Sleep Apnea STOP Sleep Apnea - supervisory cbp officer: STOP Sleep Apnea - supervisory cbp officer Hx Hypertension No 04/30/25 14:44 Hx Sleep Apnea No 04/30/25 14:44 CPAP BIPAP Do you snore loudly (louder No 04/30/25 14:44 than talking or can be heard Do you often feel tired/ No 04/30/25 14:44 fatigued/ sleepy during daytime? Has anyone observed you stop No 04/30/25 14:44 breathing during sleep? STOP Results Negative 04/30/25 14:44 QUESTION #5 FULL TEXT : Do you snore loudly (louder than talking or can be heard through closed doors)? 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 Specify any problems Hx of Preganancy in last 3 No 04/30/25 14:44 Months Nurse Filling Out Transfusion JZOLLINGE 04/30/25 14:44 & Questions: Date: 04/30/25 04/30/25 14:44 Time: 14:46 04/30/25 14:44 Patient unable to answer at this time (ie. confused, unrespo /Reproduction History /Reproductive History - supervisory cbp officer: /Reproductive Hx- supervisory cbp officer Hx Now No 04/30/25 14:44 Gestational Age (in weeks): EDC: Hx Hx Para Hx Section SAB No 04/30/25 14:44 Active Medications Active Medications: Current Medications Generic Name Dose Route Start Last Admin Trade Name Freq PRN Reason Stop Dose Admin Lactated Ringer's 1,000 mls @ 15 mls/hr 05/05/25 10:15 05/05/25 10:37 IV 15 mls/hr .Q48H FAINA Administration PFSH Medical History Segmental dystonia POTS (postural orthostatic tachycardia syndrome) Kwan-Danlos syndrome Alcohol use Arthritis CLL (chronic lymphocytic leukemia) High cholesterol History of hiatal hernia Gastric reflux History of Holter monitoring History of echocardiogram Cardiology follow-up encounter Neuropathy Hiatal hernia Vitamin D deficiency Viral hepatitis A without mention of hepatic coma Tubular adenoma of colon Palpitations Osteoporosis Malignant neoplasm of right upper lobe of lung Inflammatory bowel disease Mixed hyperlipidemia Fibromyalgia Degenerative disc disease, cervical COPD with emphysema Colon polyp Cervicalgia Cervical dystonia Adenocarcinoma Acquired torsion dystonia Hypothyroidism Nausea & vomiting Change in bowel habits Dystonia Wears glasses Post-menopausal Bruising Thyroid disease Bladder disease Low iron Hepatitis History of leukemia Difficulty swallowing Difficulty chewing Heartburn Former smoker Shortness of breath on exertion Home Medications ?Medication ?Instructions ?Recorded ?Last Taken ?Type clonazepam 0.5 mg tablet 0.5 mg PO BID 05/26/21 05/05/25 07:00 History ascorbic acid (vitamin C) 500 mg 500 mg PO DAILY 11/29/22 Unknown History capsule biotin 800 mcg tablet 800 mcg PO DAILY 11/29/22 Unknown History cholecalciferol (vitamin D3) 50 50 mcg PO DAILY 11/29/22 Unknown History mcg (2,000 unit) capsule levothyroxine 112 mcg tablet 112 mcg PO DAILY 12/06/22 05/05/25 History (Synthroid) calcium citrate 1,000 mg tablet 1,000 mg PO DAILY 12/07/22 Unknown History trazodone 150 mg tablet 150 mg PO QHS Sleep 12/07/22 05/04/25 History magnesium citrate,mag oxide 250 mg 250 mg PO BID 08/21/24 Unknown History capsule Allergy/AdvReac Type Severity Reaction Status Date / Time cephalexin Allergy Itching Verified 05/05/25 10:24 ciprofloxacin (From Cipro) Allergy Rash Verified 05/05/25 10:24 Sulfa (Sulfonamide Allergy Rash Verified 05/05/25 10:24 Antibiotics) metoclopramide (From Reglan) AdvReac Other Verified 05/05/25 10:24 Family History Mother Cancer Lung Ulcerative colitis Grandmother CAD (coronary artery disease) Angina Father Crohn's disease Brother Cancer Lung Daughter Crohn's disease Surgical History History of bilateral cataract extraction History of myomectomy History of dilatation and curettage History of colonoscopy History of esophagogastroduodenoscopy (EGD) S/P partial lobectomy of lung History of hysteroscopy Social History Smoking Status: Former smoker Tobacco: How many years used: 16 how long ago did patient quit smokin alcohol intake: former substance use type: does not use caffeine: Yes Type: coffee Number of servings: 1 Review of Systems (Anesthesia) ROS Narrative System reviewed and no additional complaints, except as documented. Physical Exam Const alert and oriented x3 Resp normal respiratory effort
--- NOTE | 2025-05-05 11:34 | PCM.PRE.AN2 ---
ASA Classification* ASA Classification ASA Classification: 3 Assessment & Plan Anesthesia* Anesthesia Assessment Anesthesia Assessment: Discussed sedation and/or anesthesia options, risks, benefits, and alternatives with patient/parents/legal guardian/POA. Questions invited. The patient/parents/legal guardian/POA seems to understand and agrees to proceed with anesthesia plan. Reviewed the physical assessment, medical history, allergy history and patient home medications list prior to surgery/procedure/anesthetic and documented any changes. Performed airway and anesthesia risk assessments. Anesthesia Type Anesthesia Type: MAC History Source History Obtained from:: Patient and Chart Anesthesia Focused Assessment* Temperature: 97.4 F Pulse Rate: 74 Blood Pressure: 123/90 Respiratory Rate: 16 Pulse Ox: 99 Oxygen Delivery Method: Room Air Airway Assessment Mouth opens: >3 cm Mallampati Score: II Teeth Condition: Missing Labs Anesthesia Preop lab: CBC WBC 33.0 K/mm3 (4.4-11.0) H* 11/20/22 15:45 11/20/22 RBC 4.38 M/mm3 (4.2-5.4) 11/20/22 15:45 11/20/22 Hgb 13.4 g/dL (12.0-15.0) 11/20/22 15:45 11/20/22 Hct 42.4 % (37-47) 11/20/22 15:45 11/20/22 Plt Count 237 K/mm3 (150-450) 11/20/22 15:45 11/20/22 CHEMISTRY Potassium 4.3 mmol/L (3.5-5.1) 03/09/24 10:36 03/09/24 Sodium 140 mmol/L (136-145) 03/09/24 10:36 03/09/24 BUN 17 mg/dL (7-18) 03/09/24 10:36 03/09/24 Creatinine 0.99 mg/dL (0.55-1.02) 03/09/24 10:36 03/09/24 Glucose 83 mg/dL (74-106) 03/09/24 10:36 03/09/24 TSH 0.53 uIU/mL (0.358-3.74) 11/20/22 15:45 11/20/22 COAG Pre-Assessment Diagnosis/Proposed Procedure Planned Operative Procedure(s): Colonoscopy,EGD Anesthesia History Anesthesia History - coroner technician: Anesthesia History - coroner technician Hx Hospitalization No 04/30/25 14:44 Any Problems With Anesthesia No 04/30/25 14:44 Cholinesterase deficiency No 04/30/25 14:44 You/Your Family Experience No 04/30/25 14:44 fever (hyperthermia) with Relationship Recent Exposure to Contagious No 05/05/25 10:25 Disease Does patient have nerve No 04/30/25 14:44 stimulator Patient instructed to have device shut off --Does patient have Pacemaker or ICD? When Was Last Pacemaker Check QUESTION #4 FULL TEXT: You/Your Family Experience fever (hyperthermia) with Anesthesia Last Oral Intake Last Oral intake: Last Oral Intake NPO since 05:30 05/05/25 10:25 Meds taken in AM with sips of water? Meds patient instructed to take am of surgery PONV PONV - coroner technician: PONV - coroner technician Female Yes 04/30/25 14:44 HX of Motion Sickness No 04/30/25 14:44 HX of N/V After Surgery No 04/30/25 14:44 Non-Smoker Yes 04/30/25 14:44 Duration of Surgery greater No 04/30/25 14:44 than 60 minutes Number of Risk Factors 2 04/30/25 14:44 PONV Score Moderate Risk 04/30/25 14:44 Height & Weight Height & Weight: Anesthesia: Height & Weight Height 5 ft 7 in 05/05/25 10:25 Weight: 69 kg 05/05/25 10:25 Body Mass Index (BMI) 23.8 05/05/25 10:25 Respiratory Assessment Respiratory Assessment - coroner technician: Respiratory Tract Infection Hx - coroner technician Hx Respiratory Tract Infection No 04/30/25 14:44 STOP Sleep Apnea STOP Sleep Apnea - coroner technician: STOP Sleep Apnea - coroner technician Hx Hypertension No 04/30/25 14:44 Hx Sleep Apnea No 04/30/25 14:44 CPAP BIPAP Do you snore loudly (louder No 04/30/25 14:44 than talking or can be heard Do you often feel tired/ No 04/30/25 14:44 fatigued/ sleepy during daytime? Has anyone observed you stop No 04/30/25 14:44 breathing during sleep? STOP Results Negative 04/30/25 14:44 QUESTION #5 FULL TEXT : Do you snore loudly (louder than talking or can be heard through closed doors)? 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 Specify any problems Hx of Preganancy in last 3 No 04/30/25 14:44 Months Nurse Filling Out Transfusion JZOLLINGE 04/30/25 14:44 & Questions: Date: 04/30/25 04/30/25 14:44 Time: 14:46 04/30/25 14:44 Patient unable to answer at this time (ie. confused, unrespo /Reproduction History /Reproductive History - coroner technician: /Reproductive Hx- coroner technician Hx Now No 04/30/25 14:44 Gestational Age (in weeks): EDC: Hx Hx Para Hx Section SAB No 04/30/25 14:44 Active Medications Active Medications: Current Medications Generic Name Dose Route Start Last Admin Trade Name Freq PRN Reason Stop Dose Admin Lactated Ringer's 1,000 mls @ 15 mls/hr 05/05/25 10:15 05/05/25 10:37 IV 15 mls/hr .Q48H FAINA Administration PFSH Medical History Segmental dystonia POTS (postural orthostatic tachycardia syndrome) Kwan-Danlos syndrome Alcohol use Arthritis CLL (chronic lymphocytic leukemia) High cholesterol History of hiatal hernia Gastric reflux History of Holter monitoring History of echocardiogram Cardiology follow-up encounter Neuropathy Hiatal hernia Vitamin D deficiency Viral hepatitis A without mention of hepatic coma Tubular adenoma of colon Palpitations Osteoporosis Malignant neoplasm of right upper lobe of lung Inflammatory bowel disease Mixed hyperlipidemia Fibromyalgia Degenerative disc disease, cervical COPD with emphysema Colon polyp Cervicalgia Cervical dystonia Adenocarcinoma Acquired torsion dystonia Hypothyroidism Nausea & vomiting Change in bowel habits Dystonia Wears glasses Post-menopausal Bruising Thyroid disease Bladder disease Low iron Hepatitis History of leukemia Difficulty swallowing Difficulty chewing Heartburn Former smoker Shortness of breath on exertion Home Medications ?Medication ?Instructions ?Recorded ?Last Taken ?Type clonazepam 0.5 mg tablet 0.5 mg PO BID 05/26/21 05/05/25 07:00 History ascorbic acid (vitamin C) 500 mg 500 mg PO DAILY 11/29/22 Unknown History capsule biotin 800 mcg tablet 800 mcg PO DAILY 11/29/22 Unknown History cholecalciferol (vitamin D3) 50 50 mcg PO DAILY 11/29/22 Unknown History mcg (2,000 unit) capsule levothyroxine 112 mcg tablet 112 mcg PO DAILY 12/06/22 05/05/25 History (Synthroid) calcium citrate 1,000 mg tablet 1,000 mg PO DAILY 12/07/22 Unknown History trazodone 150 mg tablet 150 mg PO QHS Sleep 12/07/22 05/04/25 History magnesium citrate,mag oxide 250 mg 250 mg PO BID 08/21/24 Unknown History capsule Allergy/AdvReac Type Severity Reaction Status Date / Time cephalexin Allergy Itching Verified 05/05/25 10:24 ciprofloxacin (From Cipro) Allergy Rash Verified 05/05/25 10:24 Sulfa (Sulfonamide Allergy Rash Verified 05/05/25 10:24 Antibiotics) metoclopramide (From Reglan) AdvReac Other Verified 05/05/25 10:24 Family History Mother Cancer Lung Ulcerative colitis Grandmother CAD (coronary artery disease) Angina Father Crohn's disease Brother Cancer Lung Daughter Crohn's disease Surgical History History of bilateral cataract extraction History of myomectomy History of dilatation and curettage History of colonoscopy History of esophagogastroduodenoscopy (EGD) S/P partial lobectomy of lung History of hysteroscopy Social History Smoking Status: Former smoker Tobacco: How many years used: 16 how long ago did patient quit smokin alcohol intake: former substance use type: does not use caffeine: Yes Type: coffee Number of servings: 1 Review of Systems (Anesthesia) ROS Narrative System reviewed and no additional complaints, except as documented. Physical Exam Const alert and oriented x3 Resp normal respiratory effort
--- NOTE | 2025-05-05 12:24 | OP.EGD_ITS ---
Patient Name: Hedy Mitchell Procedure Date: 05/05/2025 11:36 AM Date of : 1950 Age: 74 Procedure: Upper GI endoscopy Indications: Dysphagia Providers: Joseph De La Cruz DO Referring MD: Jerri Mayorga Medicines: Monitored Anesthesia Care Patient Profile: This is a 74 year old female. Refer to note in patient chart for documentation of history and physical. Patient has symptoms of dysphagia with solids, chronic dyspepsia and chronic nausea. Complications: No immediate complications. Procedure: Pre-Anesthesia Assessment: - Prior to the procedure, a History and Physical was performed, and patient medications and allergies were reviewed. The patient is competent. The risks and benefits of the procedure and the sedation options and risks were discussed with the patient. All questions were answered and informed consent was obtained. Patient identification and proposed procedure were verified by the physician in the pre-procedure area. Mental Status Examination: alert and oriented. Airway Examination: normal oropharyngeal airway and neck mobility. Respiratory Examination: clear to auscultation. CV Examination: normal. Prophylactic Antibiotics: The patient does not require prophylactic antibiotics. Prior Anticoagulants: The patient has taken no anticoagulant or antiplatelet agents. ASA Grade Assessment: III - A patient with severe systemic disease. After reviewing the risks and benefits, the patient was deemed in satisfactory condition to undergo the procedure. The anesthesia plan was to use monitored anesthesia care (MAC). Immediately prior to administration of medications, the patient was re-assessed for adequacy to receive sedatives. The heart rate, respiratory rate, oxygen saturations, blood pressure, adequacy of pulmonary ventilation, and response to care were monitored throughout the procedure. The physical status of the patient was re-assessed after the procedure. After obtaining informed consent, the endoscope was passed under direct vision. Throughout the procedure, the patient's blood pressure, pulse, and oxygen saturations were monitored continuously. The colonoscope was introduced through the mouth, and advanced to the second part of duodenum. The upper GI endoscopy was accomplished without difficulty. Scope In: 11:52:01 AM Scope Out: 11:58:16 AM Total Procedure Duration Time 0 hours 6 minutes 15 seconds Findings: LA Grade A (one or more mucosal breaks less than 5 mm, not extending between tops of 2 mucosal folds) esophagitis with no bleeding was found 38 to 40 cm from the incisors. Biopsies were taken with a cold forceps for histology. Verification of patient identification for the specimen was done. Estimated blood loss was minimal. A severe Schatzki ring was found in the lower third of the esophagus. A guidewire was placed and the scope was withdrawn. Dilation was performed with a Savary dilator with no resistance at 54 Fr. The dilation site was examined and showed moderate mucosal disruption. Estimated blood loss was minimal. No gross lesions were noted in the entire examined stomach. No gross lesions were noted in the entire examined duodenum. Impression: - LA Grade A reflux esophagitis with no bleeding. Biopsied. - Severe Schatzki ring. Dilated. - No gross lesions in the entire stomach. - No gross lesions in the entire examined duodenum. Recommendation: - Discharge patient to home. - Resume previous diet. - Continue present medications. - Await pathology results. Procedure Code(s): --- Professional --- 04141, Esophagogastroduodenoscopy, flexible, transoral; with insertion of guide wire followed by passage of dilator(s) through esophagus over guide wire [id number], 59, Esophagogastroduodenoscopy, flexible, transoral; with biopsy, single or multiple CPT copyright 2021 [employer]. All rights reserved. The codes documented in this report are preliminary and upon composition tile layer review may be revised to meet current compliance requirements. Joseph De La Cruz DO 05/05/2025 12:23:58 PM This report has been signed electronically. Number of Addenda: 0 Note Initiated On: 05/05/2025 11:36 AM
--- NOTE | 2025-05-05 12:24 | OP.CCLET_ITS ---
05/05/2025 Jerri Mayorga Re : Upper GI endoscopy procedure for Hedy Bellr Mukesh This procedure was performed on Monday, May 05, 2025. My impressions and recommendations are as follows: Impressions : - LA Grade A reflux esophagitis with no bleeding. Biopsied. - Severe Schatzki ring. Dilated. - No gross lesions in the entire stomach. - No gross lesions in the entire examined duodenum. Recommendations : - Discharge patient to home. - Resume previous diet. - Continue present medications. - Await pathology results. My findings are described in the full procedure note, which is enclosed. If I can be of further assistance, please feel free to contact me at . Sincerely, Joseph De La Cruz, 05/05/2025 12:23:58 PM This report has been signed electronically.
--- NOTE | 2025-05-05 12:24 | OP.EGD_ITS ---
Patient Name: Hedy Mitchell Procedure Date: 05/05/2025 11:36 AM Date of : 1950 Age: 74 Procedure: Upper GI endoscopy Indications: Dysphagia Providers: Joseph De La Cruz DO Referring MD: Jerri Mayorga Medicines: Monitored Anesthesia Care Patient Profile: This is a 74 year old female. Refer to note in patient chart for documentation of history and physical. Patient has symptoms of dysphagia with solids, chronic dyspepsia and chronic nausea. Complications: No immediate complications. Procedure: Pre-Anesthesia Assessment: - Prior to the procedure, a History and Physical was performed, and patient medications and allergies were reviewed. The patient is competent. The risks and benefits of the procedure and the sedation options and risks were discussed with the patient. All questions were answered and informed consent was obtained. Patient identification and proposed procedure were verified by the physician in the pre-procedure area. Mental Status Examination: alert and oriented. Airway Examination: normal oropharyngeal airway and neck mobility. Respiratory Examination: clear to auscultation. CV Examination: normal. Prophylactic Antibiotics: The patient does not require prophylactic antibiotics. Prior Anticoagulants: The patient has taken no anticoagulant or antiplatelet agents. ASA Grade Assessment: III - A patient with severe systemic disease. After reviewing the risks and benefits, the patient was deemed in satisfactory condition to undergo the procedure. The anesthesia plan was to use monitored anesthesia care (MAC). Immediately prior to administration of medications, the patient was re-assessed for adequacy to receive sedatives. The heart rate, respiratory rate, oxygen saturations, blood pressure, adequacy of pulmonary ventilation, and response to care were monitored throughout the procedure. The physical status of the patient was re-assessed after the procedure. After obtaining informed consent, the endoscope was passed under direct vision. Throughout the procedure, the patient's blood pressure, pulse, and oxygen saturations were monitored continuously. The colonoscope was introduced through the mouth, and advanced to the second part of duodenum. The upper GI endoscopy was accomplished without difficulty. Scope In: 11:52:01 AM Scope Out: 11:58:16 AM Total Procedure Duration Time 0 hours 6 minutes 15 seconds Findings: LA Grade A (one or more mucosal breaks less than 5 mm, not extending between tops of 2 mucosal folds) esophagitis with no bleeding was found 38 to 40 cm from the incisors. Biopsies were taken with a cold forceps for histology. Verification of patient identification for the specimen was done. Estimated blood loss was minimal. A severe Schatzki ring was found in the lower third of the esophagus. A guidewire was placed and the scope was withdrawn. Dilation was performed with a Savary dilator with no resistance at 54 Fr. The dilation site was examined and showed moderate mucosal disruption. Estimated blood loss was minimal. No gross lesions were noted in the entire examined stomach. No gross lesions were noted in the entire examined duodenum. Impression: - LA Grade A reflux esophagitis with no bleeding. Biopsied. - Severe Schatzki ring. Dilated. - No gross lesions in the entire stomach. - No gross lesions in the entire examined duodenum. Recommendation: - Discharge patient to home. - Resume previous diet. - Continue present medications. - Await pathology results. Procedure Code(s): --- Professional --- 61575, Esophagogastroduodenoscopy, flexible, transoral; with insertion of guide wire followed by passage of dilator(s) through esophagus over guide wire 33241, 59, Esophagogastroduodenoscopy, flexible, transoral; with biopsy, single or multiple CPT copyright 2021 [employer]. All rights reserved. The codes documented in this report are preliminary and upon methods time analyst review may be revised to meet current compliance requirements. Joseph De La Cruz DO 05/05/2025 12:23:58 PM This report has been signed electronically. Number of Addenda: 0 Note Initiated On: 05/05/2025 11:36 AM
--- NOTE | 2025-05-05 12:27 | PCM.POST.ANE ---
Anesthesia: Postop Eval I Current Vital Signs Temperature: 97.2 F Pulse Rate: 71 Blood Pressure: 89/62 Respiratory Rate: 16 Pulse Ox: 98 Oxygen Delivery Method: Room Air Assessment Airway patent: Yes Spontaneous unlabored respirations: Yes Mental status: Awake and Calm nausea: No Vomiting: No Anesthesia Complication: No Fluid Hydration Crystalloid volume administer (ml): 800 Total IV fluid infused: 800 Progress Note Anesthesia document: Postop Eval 1 completed: Yes
--- NOTE | 2025-05-05 12:28 | OP.COLON_ITS ---
Patient Name: Hedy Mitchell Procedure Date: 05/05/2025 11:58 AM Date of : 1950 Age: 74 Procedure: Colonoscopy Indications: Follow-up for history of adenomatous polyps in the colon Providers: Joseph De La Cruz DO Referring MD: Jerri Mayorga Medicines: Monitored Anesthesia Care Patient Profile: This is a 74 year old female. Refer to note in patient chart for documentation of history and physical. Patient has symptoms of dysphagia with solids, chronic dyspepsia and chronic nausea. Last Colonoscopy: 5 years ago. Complications: No immediate complications. Procedure: Pre-Anesthesia Assessment: - Prior to the procedure, a History and Physical was performed, and patient medications and allergies were reviewed. The patient is competent. The risks and benefits of the procedure and the sedation options and risks were discussed with the patient. All questions were answered and informed consent was obtained. Patient identification and proposed procedure were verified by the physician in the pre-procedure area. Mental Status Examination: alert and oriented. Airway Examination: normal oropharyngeal airway and neck mobility. Respiratory Examination: clear to auscultation. CV Examination: normal. Prophylactic Antibiotics: The patient does not require prophylactic antibiotics. Prior Anticoagulants: The patient has taken no anticoagulant or antiplatelet agents. ASA Grade Assessment: III - A patient with severe systemic disease. After reviewing the risks and benefits, the patient was deemed in satisfactory condition to undergo the procedure. The anesthesia plan was to use monitored anesthesia care (MAC). Immediately prior to administration of medications, the patient was re-assessed for adequacy to receive sedatives. The heart rate, respiratory rate, oxygen saturations, blood pressure, adequacy of pulmonary ventilation, and response to care were monitored throughout the procedure. The physical status of the patient was re-assessed after the procedure. After I obtained informed consent, the scope was passed under direct vision. Throughout the procedure, the patient's blood pressure, pulse, and oxygen saturations were monitored continuously. The colonoscope was introduced through the anus and advanced to the cecum, identified by appendiceal orifice and ileocecal valve. The colonoscopy was performed without difficulty. The patient tolerated the procedure well. The quality of the bowel preparation was good. The ileocecal valve, appendiceal orifice, and rectum were photographed. Scope In: 11:59:41 AM Scope Withdrawal Time 0 hours 12 minutes 45 seconds Scope Out: 12:15:53 PM Total Procedure Duration Time 0 hours 16 minutes 12 seconds Findings: The perianal and digital rectal examinations were normal. An 8 mm polyp was found in the ascending colon. The polyp was sessile. The polyp was removed with a hot snare. Resection and retrieval were complete. Verification of patient identification for the specimen was done. Estimated blood loss was minimal. A 5 mm polyp was found in the hepatic flexure. The polyp was sessile. The polyp was removed with a jumbo cold forceps. Resection and retrieval were complete. Verification of patient identification for the specimen was done. Estimated blood loss was minimal. Multiple small and large-mouthed diverticula were found in the anus, recto-sigmoid colon, sigmoid colon, transverse colon and hepatic flexure. Impression: - One 8 mm polyp in the ascending colon, removed with a hot snare. Resected and retrieved. - One 5 mm polyp at the hepatic flexure, removed with a jumbo cold forceps. Resected and retrieved. Recommendation: - Repeat colonoscopy in 5 years for surveillance. - Continue present medications. Procedure Code(s): --- Professional --- 23050, Colonoscopy, flexible; with removal of tumor(s), polyp(s), or other lesion(s) by snare technique [id number], 59, Colonoscopy, flexible; with biopsy, single or multiple CPT copyright 2021 [employer]. All rights reserved. The codes documented in this report are preliminary and upon personnel security specialist review may be revised to meet current compliance requirements. Joseph De La Cruz DO 05/05/2025 12:28:21 PM This report has been signed electronically. Number of Addenda: 0 Note Initiated On: 05/05/2025 11:58 AM
--- NOTE | 2025-05-05 12:28 | OP.COLON_ITS ---
Patient Name: Hedy Mitchell Procedure Date: 05/05/2025 11:58 AM Date of : 1950 Age: 74 Procedure: Colonoscopy Indications: Follow-up for history of adenomatous polyps in the colon Providers: Joseph De La Cruz DO Referring MD: Jerri Mayorga Medicines: Monitored Anesthesia Care Patient Profile: This is a 74 year old female. Refer to note in patient chart for documentation of history and physical. Patient has symptoms of dysphagia with solids, chronic dyspepsia and chronic nausea. Last Colonoscopy: 5 years ago. Complications: No immediate complications. Procedure: Pre-Anesthesia Assessment: - Prior to the procedure, a History and Physical was performed, and patient medications and allergies were reviewed. The patient is competent. The risks and benefits of the procedure and the sedation options and risks were discussed with the patient. All questions were answered and informed consent was obtained. Patient identification and proposed procedure were verified by the physician in the pre-procedure area. Mental Status Examination: alert and oriented. Airway Examination: normal oropharyngeal airway and neck mobility. Respiratory Examination: clear to auscultation. CV Examination: normal. Prophylactic Antibiotics: The patient does not require prophylactic antibiotics. Prior Anticoagulants: The patient has taken no anticoagulant or antiplatelet agents. ASA Grade Assessment: III - A patient with severe systemic disease. After reviewing the risks and benefits, the patient was deemed in satisfactory condition to undergo the procedure. The anesthesia plan was to use monitored anesthesia care (MAC). Immediately prior to administration of medications, the patient was re-assessed for adequacy to receive sedatives. The heart rate, respiratory rate, oxygen saturations, blood pressure, adequacy of pulmonary ventilation, and response to care were monitored throughout the procedure. The physical status of the patient was re-assessed after the procedure. After I obtained informed consent, the scope was passed under direct vision. Throughout the procedure, the patient's blood pressure, pulse, and oxygen saturations were monitored continuously. The colonoscope was introduced through the anus and advanced to the cecum, identified by appendiceal orifice and ileocecal valve. The colonoscopy was performed without difficulty. The patient tolerated the procedure well. The quality of the bowel preparation was good. The ileocecal valve, appendiceal orifice, and rectum were photographed. Scope In: 11:59:41 AM Scope Withdrawal Time 0 hours 12 minutes 45 seconds Scope Out: 12:15:53 PM Total Procedure Duration Time 0 hours 16 minutes 12 seconds Findings: The perianal and digital rectal examinations were normal. An 8 mm polyp was found in the ascending colon. The polyp was sessile. The polyp was removed with a hot snare. Resection and retrieval were complete. Verification of patient identification for the specimen was done. Estimated blood loss was minimal. A 5 mm polyp was found in the hepatic flexure. The polyp was sessile. The polyp was removed with a jumbo cold forceps. Resection and retrieval were complete. Verification of patient identification for the specimen was done. Estimated blood loss was minimal. Multiple small and large-mouthed diverticula were found in the anus, recto-sigmoid colon, sigmoid colon, transverse colon and hepatic flexure. Impression: - One 8 mm polyp in the ascending colon, removed with a hot snare. Resected and retrieved. - One 5 mm polyp at the hepatic flexure, removed with a jumbo cold forceps. Resected and retrieved. Recommendation: - Repeat colonoscopy in 5 years for surveillance. - Continue present medications. Procedure Code(s): --- Professional --- 71784, Colonoscopy, flexible; with removal of tumor(s), polyp(s), or other lesion(s) by snare technique [id number], 59, Colonoscopy, flexible; with biopsy, single or multiple CPT copyright 2021 [employer]. All rights reserved. The codes documented in this report are preliminary and upon spline rolling machine job setter review may be revised to meet current compliance requirements. Joseph De La Cruz DO 05/05/2025 12:28:21 PM This report has been signed electronically. Number of Addenda: 0 Note Initiated On: 05/05/2025 11:58 AM
--- NOTE | 2025-05-05 12:29 | OP.CCLET_ITS ---
05/05/2025 Jerri Mayorga Re : Colonoscopy procedure for Hedy Mitchell Dear Mukesh This procedure was performed on Monday, May 05, 2025. My impressions and recommendations are as follows: Impressions : - One 8 mm polyp in the ascending colon, removed with a hot snare. Resected and retrieved. - One 5 mm polyp at the hepatic flexure, removed with a jumbo cold forceps. Resected and retrieved. Recommendations : - Repeat colonoscopy in 5 years for surveillance. - Continue present medications. My findings are described in the full procedure note, which is enclosed. If I can be of further assistance, please feel free to contact me at . Sincerely, Joseph De La Cruz, 05/05/2025 12:28:21 PM This report has been signed electronically.
--- NOTE | 2025-05-05 16:02 | PCM.POSTANE2 ---
Anesthesia Postop Eval I Sum Postop Eval Completion status Anesthesia document: Postop Eval 1 completed: Yes Anesthesia Postop Eval I Summary Anesthesia Postop Eval I Summary: Anesthesia Postop Eval I: Assessment Summary Airway patent Yes 05/05/25 12:28 [email or web address] Spontaneous unlabored Yes 05/05/25 12:28 [email or web address] respirations Mental status Awake,Calm 05/05/25 12:28 [email or web address] nausea No 05/05/25 12:28 [email or web address] Vomiting No 05/05/25 12:28 [email or web address] Anesthesia Postop Eval I: Fluid Summary Crystalloid volume administer 800 05/05/25 12:28 [email or web address] (ml) Colloids volume administered ( ml) Blood Product volume administered (ml) Total IV fluid infused 800 05/05/25 12:28 [email or web address] Anesthesia Postop Eval I: Summary Notes Anesthesia Complication No 05/05/25 12:28 [email or web address] Anesthesia Complication Comment: Post-operative progress note Anesthesia: Postop Eval II Evaluation Mental status: Awake and Calm Pain Level: 2 nausea: No Vomiting: No
== END 2025-05-05 12:59 | disposition home or self-care (01) ==
LOC: EN 09:57 → AC 09:59
PROVIDERS: PCP Internal Medicine; Referring Provider Internal Medicine; Visit Provider Internal Medicine Gastroenterology
PROC: 0DJD8ZZ Inspection of Lower Intestinal Tract, Via Natural or Artificial Opening Endoscopic (ICD-10-PCS; CPT 45378; principal; 2025-05-05 10:55)
DX: R13.19 Other dysphagia (principal); J43.9 Emphysema, unspecified; K63.5 Polyp of colon; Z86.0101 Personal history of adenomatous and serrated colon polyps; E78.2 Mixed hyperlipidemia; K82.8 Other specified diseases of gallbladder; K21.00 Gastro-esophageal reflux disease with esophagitis, without bleeding; Z87.891 Personal history of nicotine dependence; E03.9 Hypothyroidism, unspecified; Z79.890 Hormone replacement therapy; Z98.41 Cataract extraction status, right eye; Z98.42 Cataract extraction status, left eye; G24.8 Other dystonia; R06.09 Other forms of dyspnea; K59.09 Other constipation; R11.2 Nausea with vomiting, unspecified; R10.31 Right lower quadrant pain; K76.0 Fatty (change of) liver, not elsewhere classified; K22.2 Esophageal obstruction; K57.90 Diverticulosis of intestine, part unspecified, without perforation or abscess without bleeding
CPT/HCPCS: 45385; 45380; 43239; 43248; 88305; C1769; J2405